=== PATIENT | female | born 1945 | race Caucasian/White ===

== ENCOUNTER → 2018-10-26 | Outpatient (CLI) | payer MEDICARE ==
--- NOTE | 2018-10-26 09:09 | US ---
EXAMINATION TYPE: US duplex aorta DATE OF EXAM: 10/26/2018 COMPARISON: NONE CLINICAL HISTORY: 72-year-old female I71.4 Cardiac murmur, unspecified. TECHNIQUE: Multiple sonographic images of the abdominal aorta are obtained. FINDINGS: EXAM MEASUREMENTS: Abdominal Aorta: Proximal: 2.5 x 2.4 x 2.8 cm Mid: 2.2 x 2.3 x 2.3 cm Distal: 1.8 x 1.8 x 2.0 cm Bifurcation: RT: 1.0 x 1.0 x 1.0 cm LT: 0.9 x 1.1 x 1.1 cm Public Relations notes: Mild atherosclerotic plaque visualized. Ectatic proximal aorta visualized IMPRESSION: Ectatic upper abdominal aorta at 2.8 cm. No AAA.
== END | disposition home or self-care (01) ==
LOC: RADUSWWP 08:08
PROVIDERS: ATTEND Family Medicine
DX: I77.811 Abdominal aortic ectasia (principal)
CPT/HCPCS: 93979

== ENCOUNTER 2020-07-28 08:17 | Day surgery (SDC) | payer MEDICARE ==
[2020-07-27 12:21] VITALS: BMI 40.6
[~2020-07-28 08:17] MED LIST: LACTATED RINGERS 1,000 ML IV SCH
[2020-07-28 08:40] VITALS: RESP 16; TEMP 97.8
[2020-07-28] MEDS ORDERED: LIDOCAINE 1% INJ 10MG/ML (20 ML MDV) ONE (09:08)
[2020-07-28] MEDS ORDERED: PROPOFOL 10 MG/ML 20 ML VIAL IV ONE (09:08)
--- NOTE | 2020-07-28 09:28 | P.PCN ---
Date of Procedure: 07/28/20 Procedure(s) Performed: BRIEF HISTORY: Patient is a 74-year-old pleasant white female scheduled for an elective colonoscopy as a part of Hemoccult-positive stool. PROCEDURE PERFORMED: Colonoscopy. PREOPERATIVE DIAGNOSIS: Hemoccult-positive stool. IV sedation per Anesthesia. PROCEDURE: After informed consent was obtained, the patient, was brought into the endoscopy unit. IV sedation was administered by Anesthesia under continuous monitoring. Digital rectal examination was normal. Initially the Olympus CF-160 flexible video colonoscope was then inserted in the rectum, gradually advanced into the cecum without any difficulty. Careful examination was performed as the scope was gradually being withdrawn. Ileocecal valve and the appendiceal orifice were visualized and appeared normal. Prep was excellent. Mucosa of the cecum, ascending colon, transverse colon, descending colon, sigmoid colon, and rectum appeared normal. Scattered sigmoid diverticulosis. Retroflexion was performed in the rectum and no lesions were seen. The patient tolerated the procedure well. IMPRESSION: Normal-appearing colon from rectum to cecum no evidence of colorectal neoplasia Scattered sigmoid diverticulosis. RECOMMENDATIONS: Findings of this examination were discussed with the patient well his family. She was advised to have a repeat screening colonoscopy in 10 years..
[2020-07-28 09:48] VITALS: BP 156/95; PULSE 60
== END 2020-07-28 10:01 | disposition home or self-care (01) ==
LOC: ORWHC2ENDO 08:17
PROVIDERS: ATTEND Internal Medicine Gastroenterology
DX: R19.5 Other fecal abnormalities (principal); K57.30 Diverticulosis of large intestine without perforation or abscess without bleeding; I10 Essential (primary) hypertension; M19.90 Unspecified osteoarthritis, unspecified site; Z79.899 Other long term (current) drug therapy; Z88.5 Allergy status to narcotic agent
CPT/HCPCS: 45378; J2001; J2704

== ENCOUNTER → 2020-07-31 | Outpatient (CLI) | payer MEDICARE | END | disposition home or self-care (01) | LOC: RADECHMAIN 12:18 | PROVIDERS: ATTEND Family Medicine | DX: R00.2 Palpitations (principal) | CPT/HCPCS: 93270 ==

== ENCOUNTER → 2020-09-11 | Outpatient (CLI) | payer MEDICARE ==
[2020-09-11 11:35] LABS: African American GFR (CKD) >90 (>60 ml/min/1.73 sqM); Blood Urea Nitrogen 15 mg/dL (7-17); Non-African American GFR(CKD) 85 (>60 ml/min/1.73 sqM)
--- NOTE | 2020-09-11 13:48 | CT ---
EXAMINATION TYPE: CT angio chest DATE OF EXAM: 09/11/2020 12:44 PM COMPARISON: None HISTORY: Thoracic aortic aneurysm CT DLP: 14.5 mGycm Automated exposure control for dose reduction was used. CONTRAST: CTA scan of the thorax is performed , patient injected with 100 mL of Isovue 370, pulmonary embolism protocol. . FINDINGS: AORTA: Ascending aorta demonstrates mild aneurysmal dilation measuring a maximal dimension of 4.2 cm. Mild atherosclerotic changes. No evidence of aortic dissection. There is ectasia of the thoracic aor ta. LUNGS: The lungs are grossly clear, there is no concerning parenchymal mass or nodule identified. T here is no pleural effusion or pneumothorax seen. The tracheobronchial tree is patent. MEDIASTINUM: There is satisfactory enhancement of the pulmonary artery and its branches, there is no CT evidence for pulmonary embolism. There are no greater than 1 cm hilar or mediastinal lymph nodes. No pericardial effusion is seen. OTHER: Subcentimeter left thyroid nodule incidentally noted. Hypertrophic and degenerative change of the spine. Vertebral body hemangioma incidentally noted. IMPRESSION: 1. Mild aneurysmal dilation of the ascending aorta measuring 4.2 cm. Very mild atherosclerotic plaque .
== END | disposition home or self-care (01) ==
LOC: RADCTMAIN 10:59
PROVIDERS: ATTEND Internal Medicine Interventional Cardiology
DX: I71.2 Thoracic aortic aneurysm, without rupture (principal); I25.83 Coronary atherosclerosis due to lipid rich plaque
CPT/HCPCS: 82565; 84520; 71275; 36415; Q9967

== ENCOUNTER → 2020-10-03 | Outpatient (CLI) | payer MEDICARE ==
[2020-10-03 13:37] LABS: African American GFR (CKD) >90 (>60 ml/min/1.73 sqM); Anion Gap 3 mmol/L; Blood Urea Nitrogen 17 mg/dL (7-17); Carbon Dioxide 33 mmol/L (22-30); Chloride 100 mmol/L (98-107); Glucose 117 mg/dL (74-99); Non-African American GFR(CKD) >90 (>60 ml/min/1.73 sqM); Potassium 4.5 mmol/L (3.5-5.1); Sodium 136 mmol/L (137-145)
== END | disposition home or self-care (01) ==
LOC: LABWHC1 12:01
PROVIDERS: ATTEND Nurse Practitioner
DX: E87.1 Hypo-osmolality and hyponatremia (principal)
CPT/HCPCS: 36415; 80048

== ENCOUNTER → 2020-10-11 | Outpatient (CLI) | payer MEDICARE ==
[2020-10-11 16:37] LABS: Appearance,Urine Clear (Clear); Bilirubin,Urine Negative (Negative); Blood,Urine Negative (Negative); Budding Yeast,Urine Rare /hpf; Color,Urine Light Yellow; Glucose,Urine (UA) Negative (Negative); Hyaline Casts,Urine 3 /lpf (0-2); Ketones,Urine Negative (Negative); Leukocyte Esterase,Urine Moderate (Negative); Mucus,Urine Rare /hpf; Nitrite,Urine Negative (Negative); PH, Urine 6.5 (5.0-8.0); Protein,Urine Negative (Negative); RBC,Urine 1 /hpf (0-5); Specific Gravity,Urine 1.015 (1.001-1.035); Squamous Epithelial Cell,Urine <1 /hpf (0-4); Urobilinogen,Urine <2.0 mg/dL (<2.0); WBC,Urine 15 /hpf (0-5)
[2020-10-11 16:53] LABS: Creatinine,Urine Random 61.5 mg/dL; Protein/Creatinine Ratio,Urine 0.163
[2020-10-11 23:55] LABS: Basophils # (A) 0.02 X 10*3/uL (0.00-0.10); Basophils % (A) 0.3 %; Eosinophils # (A) 0.08 X 10*3/uL (0.04-0.35); Eosinophils % (A) 1.2 %; HCT 32.6 % (37.2-46.3); Lymphocytes # (A) 0.68 X 10*3/uL (0.90-5.00); Lymphocytes % (A) 10.5 %; MCH 28.6 pg (27.0-32.0); MCHC 30.7 g/dL (32.0-37.0); MCV 93.1 fL (80.0-97.0); Mean Platelet Volume 10.2 fL (9.5-12.2); Monocytes # (A) 0.42 X 10*3/uL (0.20-1.00); Monocytes % (A) 6.5 %; Neutrophils # (A) 5.23 X 10*3/uL (1.80-7.70); Neutrophils % (A) 81.2 %; Platelet Count 269 X 10*3/uL (140-440); RDW 15.8 % (11.5-14.5); WBC 6.45 X 10*3/uL (4.50-10.00)
[2020-10-12 20:33] LABS: African American GFR (CKD) 100.3 (60.0-200.0); Anion Gap 9.9 mmol/L (4.00-12.00); Calcium 9.7 mg/dL (8.7-10.3); Carbon Dioxide 26.1 mmol/L (21.6-31.8); Magnesium 1.8 mg/dL (1.5-2.4); Non-African American GFR(CKD) 86.6 (60.0-200.0); Phosphorus 3.3 mg/dL (2.4-5.1); Potassium 4.3 mmol/L (3.5-5.5); Uric Acid 2.8 mg/dL (2.9-7.7)
== END | disposition home or self-care (01) ==
LOC: LABWHC1 15:39
PROVIDERS: ATTEND Internal Medicine Nephrology
DX: N17.9 Acute kidney failure, unspecified (principal)
CPT/HCPCS: 36415; 80051; 81001; 82310; 82565; 82570; 83735; 84100; 84156; 84520; 84550; 85025

== ENCOUNTER → 2020-12-14 | Outpatient (CLI) | payer MEDICARE ==
[2020-12-14 15:04] LABS: Appearance,Urine Clear (Clear); Bilirubin,Urine Negative (Negative); Blood,Urine Negative (Negative); Color,Urine Yellow; Glucose,Urine (UA) Negative (Negative); Ketones,Urine Negative (Negative); Leukocyte Esterase,Urine Negative (Negative); Nitrite,Urine Negative (Negative); PH, Urine 6.5 (5.0-8.0); Protein,Urine Negative (Negative); Specific Gravity,Urine 1.012 (1.001-1.035); Urobilinogen,Urine <2.0 mg/dL (<2.0)
[2020-12-15 01:13] LABS: HCT 41.5 % (37.2-46.3); HGB 12.7 g/dL (12.0-15.0); MCH 27.5 pg (27.0-32.0); MCHC 30.6 g/dL (32.0-37.0); Mean Platelet Volume 10.3 fL (9.5-12.2); Platelet Count 236 X 10*3/uL (140-440); RBC 4.61 X 10*6/uL (4.10-5.20); RDW 13.2 % (11.5-14.5); WBC 5.24 X 10*3/uL (4.50-10.00)
[2020-12-15 06:23] LABS: Calcium 9.6 mg/dL (8.7-10.3); Phosphorus 4.5 mg/dL (2.4-5.1); Uric Acid 4.3 mg/dL (2.9-7.7)
== END | disposition home or self-care (01) ==
LOC: LABWHC1 14:13
PROVIDERS: ATTEND Internal Medicine Nephrology
DX: I10 Essential (primary) hypertension (principal)
CPT/HCPCS: 36415; 81003; 82310; 83735; 83935; 84100; 84133; 84300; 84550; 85027

== ENCOUNTER → 2020-12-20 | Outpatient (CLI) | payer MEDICARE ==
[2020-12-21 03:21] LABS: African American GFR (CKD) 73.5 (60.0-200.0); Anion Gap 14.2 mmol/L (4.00-12.00); BUN/Creat Ratio 16.67 Ratio (12.00-20.00); Calcium 9.6 mg/dL (8.7-10.3); Carbon Dioxide 22.8 mmol/L (21.6-31.8); Non-African American GFR(CKD) 63.4 (60.0-200.0); Potassium 5.2 mmol/L (3.5-5.5)
== END | disposition home or self-care (01) ==
LOC: LABWHC1 13:43
PROVIDERS: ATTEND Internal Medicine Nephrology
DX: N17.9 Acute kidney failure, unspecified (principal)
CPT/HCPCS: 36415; 80048

== ENCOUNTER → 2021-01-01 | Outpatient (CLI) | payer MEDICARE ==
[2021-01-01 23:53] LABS: Chol/HDL Ratio 4.6; LDL Cholesterol,Calculated 186.6 mg/dL (0.0-131.0); VLDL Calculation 22.4 mg/dL (5.00-40.00)
== END | disposition home or self-care (01) ==
LOC: LABWHC1 11:00
PROVIDERS: ATTEND Nurse Practitioner Adult Health
DX: E78.2 Mixed hyperlipidemia (principal)
CPT/HCPCS: 36415; 80061; 84450; 84460

== ENCOUNTER → 2021-01-19 | Outpatient (CLI) | payer MEDICARE ==
--- NOTE | 2021-01-19 15:01 | XR ---
EXAMINATION TYPE: XR chest 2V DATE OF EXAM: 01/19/2021 COMPARISON: NONE HISTORY: Shortness of breath TECHNIQUE: Frontal and lateral views of the chest are obtained. FINDINGS: Scattered senescent parenchymal changes noted. Hyperinflation compatible with COPD. No evidence for infiltrate. No evidence for atelectasis. Heart size is stable. Mediastinal structures are stable and grossly unremarkable. No evidence for hilar prominence. Degenerative changes dorsal spine. IMPRESSION: 1. No evidence for acute pulmonary disease.
== END | disposition home or self-care (01) ==
LOC: RADXRMAIN 11:39
PROVIDERS: ATTEND Nurse Practitioner
DX: R06.02 Shortness of breath (principal)
CPT/HCPCS: 71046

== ENCOUNTER → 2021-09-17 | Outpatient (CLI) | payer MEDICARE ==
[2021-09-17 13:54] LABS: African American GFR (CKD) >90 (>60 ml/min/1.73 sqM); Blood Urea Nitrogen 14 mg/dL (7-17); Non-African American GFR(CKD) 79 (>60 ml/min/1.73 sqM)
--- NOTE | 2021-09-17 15:34 | CT ---
EXAMINATION TYPE: CT angio chest DATE OF EXAM: 09/17/2021 COMPARISON: CT dated 09/11/2020 HISTORY: Follow up for thoracic aortic aneurysm. CT DLP: 1124 mGy.cm. Automated Exposure Control for Dose Reduction was Utilized. TECHNIQUE AND CONTRAST: CTA scan of the thorax is performed without and with IV Contrast, patient injected with 100ml mL of I sovue 370, thoracic aortogram protocol. MIP and 3-D Images are created on an independent workstatio n and reviewed. FINDINGS: The ascending aorta measures up to 4.4 cm, not significantly changed compared to the previous CT scan . Bovine aortic arch. Scattered arterial atherosclerotic calcifications. Tortuous descending thoracic aorta. Grossly unremarkable remainder of the thoracic and upper abdominal aorta. No major or central pulmonary embolism. No gross cardiomegaly. Small pericardial fluid. Unremarkable lungs. Patent trachea and main bronchi. No pleural effusion. Small left posterior fat-co ntaining diaphragmatic hernia. No pathologically enlarged lymph nodes in the chest. Degenerative rick ges of the glenohumeral articulations. Degenerative changes of T1-2 level and upper lumbar spine. IMPRESSION: Small ascending aortic aneurysm measuring up to 4.4 cm, grossly stable compared to the previous CT sc an. Other incidental findings as described above.
== END | disposition home or self-care (01) ==
LOC: RADCTMAIN 13:17
PROVIDERS: ATTEND Internal Medicine Interventional Cardiology
DX: I71.2 Thoracic aortic aneurysm, without rupture (principal)
CPT/HCPCS: 82565; 84520; 71275; 36415; Q9967

== ENCOUNTER → 2022-01-17 | Outpatient (CLI) | payer MEDICARE ==
[2022-01-17 10:49] LABS: ALT 16 U/L (8-44); AST 24 U/L (13-35); Chol/HDL Ratio 4.03 Ratio; LDL Cholesterol,Calculated 168.7 mg/dL (0.0-131.0)
== END | disposition home or self-care (01) ==
LOC: LABWHC1 07:46
PROVIDERS: ATTEND Internal Medicine Interventional Cardiology
DX: E78.2 Mixed hyperlipidemia (principal)
CPT/HCPCS: 36415; 80061; 84450; 84460

== ENCOUNTER → 2022-03-11 | Outpatient (CLI) | payer MEDICARE ==
--- NOTE | 2022-03-11 19:58 | BD ---
EXAMINATION TYPE: Axial Bone Density DATE OF EXAM: 03/11/2022 COMPARISON: NONE CLINICAL HISTORY: 76 years year old Female. ICD-10 CODE: Z78.0 Menopausal state Height: 65 Weight: 251.8 FRAX RISK QUESTIONS: Alcohol (3 or more units per day): NO Family History (Parent hip fracture): NO Glucocorticoids (More than 3mos): NO History of Fracture in Adulthood: NO Secondary Osteoporosis: 1. Type 1 Diabetes: NO 2. Hyperthyroidism: NO 3. Menopause before 45: NO 4. Malnutrition: NO 5. Chronic liver disease: NO Rheumatoid Arthritis: NO Current Tobacco Use: NO RISK FACTORS HISTORY OF: Hip Fracture (Right/Left): NO Spine Fracture: NO History of Wrist Fracture: NO Surgery to Spine/Hip(right/left)/Wrist (right/left): NO Family History of Osteoporosis: NO Active: YES Diet low in dairy products/other sources of calcium: YES Postmenopausal woman: YES Take estrogen and/or progesterone medications: NO Lost more than 2 inches in height since high school: NO Frequent falls: NO Poor Health: NO Hyperparathyroidism: NO Adrenal Insufficiency: NO MEDICATIONS: Prednisone or other steroids: NO Thyroid Medications:NO Osteoporosis Medications: NO Additional Medications: LOSARTAN, HYDRALAZINE, LASIX, BP MEDS, THYROID SUPPLEMENT, JOINT SUPPLEMENT, VIT D, ZINC, TUMERIC EXAM MEASUREMENTS: Bone mineral densitometry was performed using the [employer] System. Bone mineral density as measured about the Lumbar spine is: ----- L1-L4(G/cm2): 1.519 T Score Values are as follows: ----- L1: 2.9 ----- L2: 3.5 ----- L3: 2.2 ----- L4: 2.4 ----- L1-L4: 2.8 BASELINE STUDY Bone mineral density about the R hip (g/cm2): 1.088 Bone mineral density about the L hip (g/cm2): 1.229 T Score values are as follows: -----R Neck: 0.4 -----L Neck: 1.4 -----R Total: 0.6 -----L Total: 0.9 BASELINE STUDY FRAX%s: The graph provided illustrates a 6.0% chance for a major osteoporotic fx and a 0.3% chance fo r the hips probability for fx in 10 years time. IMPRESSION: Normal (Values between +1 and -1 indicate normal bone mass). Consider repeating this study in 5 year s or sooner if there is some new clinical indication. NOTE: T-SCORE=SD OF THE YOUNG ADULT MEAN.
--- NOTE | 2022-03-12 17:43 | MM ---
Reason for Exam: Screening (asymptomatic). Last mammogram was performed 25 year(s) and 0 month(s) ago. Patient History: Menarche at age 13. First Full-Term at age 24. Postmenopausal. Patient has history of breast feeding. Last menstrual period: Risk Values: Polly 5 year model risk: 1.7%. NCI Lifetime model risk: 4.0%. Prior Study Comparison: No prior studies available for comparison. Tissue Density: There are scattered fibroglandular densities. Findings: Analyzed By CAD. Benign calcifications scattered bilaterally. No suspicious groups of microcalcifications, spiculated or lobular masses, architectural distortion or other secondary signs of malignancy are mammographically apparent. Overall Assessment: Benign, BI-RAD 2 Management: Screening Mammogram of both breasts in 1 year. A negative mammogram report should not preclude additional follow up of suspicious palpable abnormalities. Patient should continue monthly self breast exam. A clinical breast exam by your physician is recommended on an annual basis and results should be correlated with mammographic findings. Electronically signed and approved by: Herberth Wallis D.O. Radiologis
== END | disposition home or self-care (01) ==
LOC: RADMAMWWP 10:13
PROVIDERS: ATTEND Family Medicine
DX: Z12.31 Encounter for screening mammogram for malignant neoplasm of breast (principal); Z78.0 Asymptomatic menopausal state
CPT/HCPCS: 77063; 77067; 77080

== ENCOUNTER 2023-03-31 23:28 | Inpatient (IN) | payer MEDICARE ==
[2023-03-31] MEDS ORDERED: ALTEPLASE 81 MG in EMPTY BAG 1 BAG IV STA (23:36)
[2023-03-31] MEDS ORDERED: ALTEPLASE BOLUS 1 MG/1 ML SYRINGE IV STA (23:36)
--- NOTE | 2023-03-31 23:36 | ED ---
Neuro HPI - General Stated Complaint: Alteplase Time Seen by Provider: 03/31/23 23:30 - History of Present Illness Is the patient presenting with stroke symptoms?: Yes Last Known Well Date: 03/31/23 Last Known Well Time: 22:41 Onset/Timin -: minutes(s) Initial Comments: Margaux is a pleasant 77-year-old female who presents to the ER today via EMS for evaluation of possible stroke. reports that he was sitting in the living room watching football and it had only been moment since he had talked to his when she walked back in and told him "not good" he noted that her right arm seemed to be paralyzed and she was saying words but not necessarily making sense. He was concerned that she may be having a stroke so he called 911. Upon arrival patient is awake but has expressive aphasia. She can speak clearly however there is words salad and not appropriate responses to all questions. - Related Data Home Medications: Home Medications Medication Instructions Recorded Confirmed hydroCHLOROthiazide 25 mg PO DAILY 02/27/14 07/27/20 Cholecalciferol (Vitamin D3) 125 mcg PO DAILY 07/27/20 07/27/20 [Vitamin D3 (5000 Iu)] Colon Fiber Blend 1 applicate PO DAILY 07/27/20 07/27/20 Garlic 3 each PO DAILY 07/27/20 07/27/20 Ibuprofen [Advil] 400 mg PO BID PRN 07/27/20 07/27/20 Losartan Potassium 100 mg PO DAILY 07/27/20 07/27/20 Multivitamins, Thera [Multivitamin 1 tab PO DAILY 07/27/20 07/27/20 (formulary)] S[place]-3 Fatty Acids [S[place]rav[place]-3] 1,000 mg PO DAILY 07/27/20 07/27/20 dilTIAZem HCL [Cartia Xt] 120 mg PO DAILY 07/27/20 07/27/20 Allergies/Adverse Reactions: Allergies Allergy/AdvReac Type Severity Reaction Status Date / Time codeine Allergy Mild Itching Verified 07/27/20 12:07 sunflower seed Allergy Itching Verified 07/27/20 12:07 Review of Systems ROS Statement: Those systems with pertinent positive or pertinent negative responses have been documented in the HPI. ROS Other: All systems not noted in ROS Statement are negative. Stroke MDM - Lab Data Result diagrams: 04/01/23 05:47 11/21/23 05:47 Lab Results 03/31/23 03/31/23 03/31/23 Range/Units 23:37 23:37 23:37 WBC 4.0 (3.8-10.6) k/uL RBC 4.72 (3.80-5.40) m/uL Hgb 13.9 (11.4-16.0) gm/dL Hct 41.7 (34.0-46.0) % MCV 88.4 (80.0-100.0) fL MCH 29.4 (25.0-35.0) pg MCHC 33.3 (31.0-37.0) g/dL RDW 14.2 (11.5-15.5) % Plt Count 190 (150-450) k/uL MPV 7.5 Neutrophils % 66 % Lymphocytes % 23 % Monocytes % 7 % Eosinophils % 2 % Basophils % 1 % Neutrophils # 2.7 (1.3-7.7) k/uL Lymphocytes # 0.9 L (1.0-4.8) k/uL Monocytes # 0.3 (0-1.0) k/uL Eosinophils # 0.1 (0-0.7) k/uL Basophils # 0.0 (0-0.2) k/uL PT 10.5 (10.0-12.5) sec INR 0.9 (<1.2) APTT 25.4 (22.0-30.0) sec Sodium 135 L (137-145) mmol/L Potassium 3.9 (3.5-5.1) mmol/L Chloride 103 (98-107) mmol/L Carbon Dioxide 23 (22-30) mmol/L Anion Gap 9 mmol/L BUN 24 H (7-17) mg/dL Creatinine 0.78 (0.52-1.04) mg/dL Est GFR (CKD-EPI)AfAm 86 (>60 ml/min/1.73 sqM) Est GFR (CKD-EPI)NonAf 75 (>60 ml/min/1.73 sqM) Glucose 104 H (74-99) mg/dL POC Glucose (mg/dL) (70-110) mg/dL POC Glu Coordinator Of Library Services ID Calcium 9.1 (8.4-10.2) mg/dL Total Bilirubin 0.6 (0.2-1.3) mg/dL AST 34 (14-36) U/L ALT 28 (4-34) U/L Alkaline Phosphatase 103 (38-126) U/L Creatine Kinase 118 (30-135) U/L Troponin I (0.000-0.034) ng/mL Total Protein 6.7 (6.3-8.2) g/dL Albumin 3.9 (3.5-5.0) g/dL 03/31/23 03/31/23 Range/Units 23:37 23:44 WBC (3.8-10.6) k/uL RBC (3.80-5.40) m/uL Hgb (11.4-16.0) gm/dL Hct (34.0-46.0) % MCV (80.0-100.0) fL MCH (25.0-35.0) pg MCHC (31.0-37.0) g/dL RDW (11.5-15.5) % Plt Count (150-450) k/uL MPV Neutrophils % % Lymphocytes % % Monocytes % % Eosinophils % % Basophils % % Neutrophils # (1.3-7.7) k/uL Lymphocytes # (1.0-4.8) k/uL Monocytes # (0-1.0) k/uL Eosinophils # (0-0.7) k/uL Basophils # (0-0.2) k/uL PT (10.0-12.5) sec INR (<1.2) APTT (22.0-30.0) sec Sodium (137-145) mmol/L Potassium (3.5-5.1) mmol/L Chloride (98-107) mmol/L Carbon Dioxide (22-30) mmol/L Anion Gap mmol/L BUN (7-17) mg/dL Creatinine (0.52-1.04) mg/dL Est GFR (CKD-EPI)AfAm (>60 ml/min/1.73 sqM) Est GFR (CKD-EPI)NonAf (>60 ml/min/1.73 sqM) Glucose (74-99) mg/dL POC Glucose (mg/dL) 102 (70-110) mg/dL POC Glu Coordinator Of Library Services ID Pacheco, Francoise Calcium (8.4-10.2) mg/dL Total Bilirubin (0.2-1.3) mg/dL AST (14-36) U/L ALT (4-34) U/L Alkaline Phosphatase (38-126) U/L Creatine Kinase (30-135) U/L Troponin I <0.012 (0.000-0.034) ng/mL Total Protein (6.3-8.2) g/dL Albumin (3.5-5.0) g/dL - NIH Stroke Scale 1a. Level of Consciousness: (0) alert 1b. LOC Questions: (1) answers 1 question correctly 1c. LOC Commands: (0) performs tasks correctly 2. Best Gaze: (0) normal 3. Visual: (0) no visual loss 4. Facial Palsy: (0) normal symmetrical movement 5a. Motor Arm Left: (0) no drift 5b. Motor Arm Right: (3) no gravity effort 6a. Motor Leg Left: (0) no drift 6b. Motor Leg Right: (0) no drift 7. Limb Ataxia: (0) absent 8. Sensory: (0) normal 9. Best Language: (1) mild/moderate aphasia 10. Dysarthria: (0) normal 11. Extinction/Inattention: (0) no abnormality - Thrombolytic Inclusion/Exclusion Thrombolytic Inclusion Criteria: Symptom Onset < 4.5 h - Core Measures Door to Thrombolytics, if given: [address] Read: 22 min Measure Exclusions: not indicated - Medical Decision Making Was pt. sent in by a medical professional or institution (, PA, ULTRASONIC HAND SOLDERER, urgent care, hospital, or [place] health care facility...) When possible be specific @ -No Did you speak to anyone other than the patient for history (EMS, parent, family, police, friend...)? What history was obtained from this source @ -EMS, spouse Did you review nursing and triage notes (agree or disagree)? Why? @ -I reviewed and agree with nursing and triage notes Were old charts reviewed (outside hosp., previous admission, EMS record, old EKG, old radiological studies, urgent care reports/EKG's, [place] health care facility records)? Report findings @ -No old charts were reviewed Differential Diagnosis (chest pain, altered mental status, abdominal pain women, abdominal pain men, vaginal bleeding, weakness, fever, dyspnea, syncope, headach e, dizziness, GI bleed, back pain, seizure, CVA, palpatations, mental health, musculoskeletal)? @ -Differential Altered Mental Status: Hypoglycemia, DKA, hypercapnia, ETOH, overdose, CO poisoning, trauma, myxedema coma, HTN encephalopathy, infection, encephalitis, psychosis, intercranial hemorrhage, hepatic encephalopathy, meningitis, CVA, this is not meant to be an all-inclusive list EKG interpreted by me (3pts min.). @ -As above X-rays interpreted by me (1pt min.). @ -Chest x-ray with no pneumothorax, pulmonary congestion and cardiomegaly noted CT interpreted by me (1pt min.). @ -CT of the brain with no obvious mass or bleed CTA of the head and neck with no obvious bleed U/S interpreted by me (1pt. min.). @ -None done What testing was considered but not performed or refused? (CT, X-rays, U/S, lab s)? Why? @ -MRI can be obtained upon admission What meds were considered but not given or refused? Why? @ -None Did you discuss the management of the patient with other professionals (professionals i.e. , PA, ULTRASONIC HAND SOLDERER, lab, RT, psych nurse, social media analyst, bodily injury adjuster, teacher, railway patrol officer, protective services case worker)? Give summary @ -Discussed with neuro interventional is Dr. Lees Was smoking cessation discussed for >3mins.? @ -No Was critical care preformed (if so, how long)? @ -Yes, 35 minutes Were there social determinants of health that impacted care today? How? (Homelessness, low income, unemployed, alcoholism, drug addiction, transportation, low edu. Level, literacy, decrease access to med. care, long term, rehab)? @ -No Was there de-escalation of care discussed even if they declined (Discuss DNR or withdrawal of care, Hospice)? DNR status @ -No What co-morbidities impacted this encounter? (DM, HTN, Smoking, COPD, CAD, Cancer, CVA, ARF, Chemo, Hep., AIDS, mental health diagnosis, sleep apnea, morbid obesity)? @ -Hypertension Was patient admitted / discharged? Hospital course, mention meds given and route, prescriptions, significant lab abnormalities, going to OR and other pertinent info. @ -The patient was seen immediately upon arrival to the emergency department, patient was placed on a bed for accurate weight and then transferred immediately to CT scanner where computed tomography scan was performed and evaluated in real-time by myself I saw no obvious mass or bleed. I then returned to the patient's room to discuss care with her as the patient was experiencing expressive aphasia therefore could not consent for herself. is familiar with the risks and benefits of TPA having received in the past himself, patient stated immediately upon starting conversation that he wanted the medication given as soon as possible. We did discuss risk of leaving including intracranial hemorrhage, understands these risks and would like to move forward with administration of the medication. The head CT was formally read by the radiologist and TPA was administered 30 minutes after arrival. Patient care was discussed with Srinivas REYES for ICU who accepts patient to the ICU Patient care was discussed with Tanvi Redd nurse practitioner for [facility] who accepts the admission Patient was reevaluated approximately 30 minutes after TPA administration, she had her family at bedside. Patient's expressive aphasia was improving significantly she was able to speak clearly name the people in the room and answer most of my questions though occasionally stumble on certain words. Patient had some effort against gravity in her right upper extremity. She was awake alert oriented with improving neurologic condition when she was transferred to the ICU from the emergency department Undiagnosed new problem with uncertain prognosis? @ -Yes Drug Therapy requiring intensive monitoring for toxicity (Heparin, Nitro, Insulin, Cardizem)? @ -Yes - TPA Were any procedures done? @ -No Diagnosis/symptom? @ -Acute stroke Acute, or Chronic, or Acute on Chronic? @ -Acute Uncomplicated (without systemic symptoms) or Complicated (systemic symptoms)? @ -Complicated Side effects of treatment? @ -No Exacerbation, Progression, or Severe Exacerbation? @ -No Poses a threat to life or bodily function? How? (Chest pain, USA, VT, pneumonia, PE, COPD, DKA, ARF, appy, cholecystitis, CVA, Diverticulitis, Homicidal, Suicidal, threat to staff... and all critical care pts) @ -Yes - can convert to intracranial hemorrhage - Radiology Data Radiology results: report reviewed, image reviewed - EKG Data -: EKG Interpreted by Me EKG shows normal: sinus rhythm, intervals Rate: normal EKG was obtained as part stroke workup, EKG obtained at 2348 rate is 76 rhythm sinus with intraventricular conduction delay, AK 181 QRS 114 QTC [address] elevations or depressions or evidence of ischemia or infarction. 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, "bad knees' History of Any Multi-Drug Resistant Organisms: None Reported Past Surgical History: Appendectomy, Hernia Repair, Orthopedic Surgery, Tonsillectomy Additional Past Surgical History / Comment(s): ulbilical hernia repair, cedric bunionectomy Past Anesthesia/Blood Transfusion Reactions: No Reported Reaction Smoking Status: Never smoker - Past Family History Daughter(s) Family Medical History: Cancer Additional Family Medical History / Comment(s): breast Sister(s) Family Medical History: Cancer Additional Family Medical History / Comment(s): uterine Brother(s) Family Medical History: Cancer, Pulmonary Embolus Additional Family Medical History / Comment(s): melanoma Course Vital Signs 03/31/23 04/01/23 04/01/23 23:30 00:00 00:15 Temperature 98.5 F Pulse Rate 76 Pulse Rate [ 81 73 Vault Worker ] Respiratory 16 16 16 Rate Blood Pressure 177/101 Blood Pressure 175/103 175/71 [Right Arm] O2 Sat by Pulse 97 95 95 Oximetry 04/01/23 04/01/23 04/01/23 00:30 00:45 01:00 Temperature 97.8 F 98.6 F Pulse Rate Pulse Rate [ 71 73 69 Vault Worker ] Respiratory 14 16 14 Rate Blood Pressure Blood Pressure 131/101 149/95 125/107 [Right Arm] O2 Sat by Pulse 94 L 94 L 95 Oximetry 04/01/23 01:21 Temperature Pulse Rate Pulse Rate [ 69 Vault Worker ] Respiratory 16 Rate Blood Pressure Blood Pressure 127/84 [Right Arm] O2 Sat by Pulse 95 Oximetry Critical Care Time Critical Care Time: Yes Total Critical Care Time: 60 Critical Care Time: Critical Care Time Critical care time was exclusive of separately billable procedures and treating other patients and teaching time. Critical care was necessary to treat or prevent imminent or life-threatening deterioration. Given the critical condition in which the patient arrived, the patient was immediately assessed by myself and the nurse, and cardiac monitoring initiated due to the potential for rapid decompensation of the patient's clinical condition. During the course of the patients stay, I spent a considerable amount of time at the bedside performing serial re-evaluations of the patient's hemodynamic and clinical status because of the recognized potential threat to life or limb in this condition. I then had a chance to review not only all of the available current laboratory and radiographic studies obtained today, but I also reviewed old records available to me at the time. Additionally, any ancillary information available including chair finisher records were reviewed. Sequential vital signs were obtained. Disposition Clinical Impression: Cerebrovascular accident (CVA) Disposition: ADMITTED IP TO THIS HOSP Condition: Serious Is patient prescribed a controlled substance at d/c from ED?: No
[2023-03-31 23:46] LABS: Glucose,Whole Blood 102 mg/dL (70-110)
--- NOTE | 2023-03-31 23:52 | CT ---
EXAM: CT Head Without Intravenous Contrast CLINICAL HISTORY: ITS.REASON CT Reason: Neuro deficit, acute, stroke suspected TECHNIQUE: Axial computed tomography images of the head/brain without intravenous contrast. CTDI is 48.8 mGy and DLP is 1160.9 mGy-cm. This CT exam was performed using one or more of the following dose reduction techniques: automated exposure control, adjustment of the mA and/or kV according to patient size, and/or use of iterative reconstruction technique. COMPARISON: No relevant prior studies available. FINDINGS: Brain: Moderate low-attenuation foci in the cerebral white matter. No hemorrhage. Ventricles: No acute findings. No ventriculomegaly. Bones/joints: Small osteoma of outer table left frontal calvarium. Hyperostosis frontalis. No acute fracture. Soft tissues: Unremarkable. Sinuses: Unremarkable as visualized. No acute sinusitis. Mastoid air cells: Unremarkable as visualized. No mastoid effusion. Sella: Empty sella. IMPRESSION: Moderate low-attenuation foci in the cerebral white matter. Findings are nonspecific but commonly chronic small vessel ischemic disease.
[2023-04-01 00:04] LABS: Basophils % (A) 1 %; Eosinophils # (A) 0.1 k/uL (0-0.7); Eosinophils % (A) 2 %; HCT 41.7 % (34.0-46.0); HGB 13.9 gm/dL (11.4-16.0); Lymphocytes # (A) 0.9 k/uL (1.0-4.8); Lymphocytes % (A) 23 %; MCH 29.4 pg (25.0-35.0); MCHC 33.3 g/dL (31.0-37.0); MCV 88.4 fL (80.0-100.0); Mean Platelet Volume 7.5; Monocytes # (A) 0.3 k/uL (0-1.0); Monocytes % (A) 7 %; Neutrophils # (A) 2.7 k/uL (1.3-7.7); Neutrophils % (A) 66 %; Platelet Count 190 k/uL (150-450); RBC 4.72 m/uL (3.80-5.40); RDW 14.2 % (11.5-15.5)
[2023-04-01 00:15] LABS: ALT 28 U/L (4-34); AST 34 U/L (14-36); African American GFR (CKD) 86 (>60 ml/min/1.73 sqM); Albumin 3.9 g/dL (3.5-5.0); Alkaline Phosphatase 103 U/L (38-126); Anion Gap 9 mmol/L; Blood Urea Nitrogen 24 mg/dL (7-17); Calcium 9.1 mg/dL (8.4-10.2); Carbon Dioxide 23 mmol/L (22-30); Chloride 103 mmol/L (98-107); Creatine Kinase 118 U/L (30-135); Glucose 104 mg/dL (74-99); Non-African American GFR(CKD) 75 (>60 ml/min/1.73 sqM); Potassium 3.9 mmol/L (3.5-5.1); Sodium 135 mmol/L (137-145); Total Bilirubin 0.6 mg/dL (0.2-1.3); Total Protein 6.7 g/dL (6.3-8.2)
[2023-04-01 00:23] LABS: INR 0.9 (<1.2); Partial Thromboplastin Time 25.4 sec (22.0-30.0); Prothrombin Time 10.5 sec (10.0-12.5)
--- NOTE | 2023-04-01 00:27 | CT ---
EXAM: CT Angiography Head With Intravenous Contrast CLINICAL HISTORY: ITS.REASON CT Reason: Neuro deficit, acute, stroke suspected TECHNIQUE: Axial computed tomographic angiography images of the head with intravenous contrast. CTDI is 23.65 mGy and DLP is 356.55 mGy-cm. This CT exam was performed using one or more of the following dose reduction techniques: automated exposure control, adjustment of the mA and/or kV according to patient size, and/or use of iterative reconstruction technique. MIP reconstructed images were created and reviewed. COMPARISON: No relevant prior studies available. FINDINGS: Right internal carotid artery: Mild calcified plaque carotid siphons. Intracranial segment is patent with no significant stenosis. No aneurysm. Right anterior cerebral artery: No occlusion or significant stenosis. No aneurysm. Right middle cerebral artery: No occlusion or significant stenosis. No aneurysm. Right posterior cerebral artery: No occlusion or significant stenosis. No aneurysm. Right vertebral artery: Unremarkable as visualized. Left internal carotid artery: See above. Left anterior cerebral artery: No occlusion or significant stenosis. No aneurysm. Left middle cerebral artery: Calcified plaque causing some mild short segment stenosis in the left M1 segment. Left posterior cerebral artery: origin of the left posterior cerebral artery. 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 Basilar artery: No occlusion or significant stenosis. No aneurysm. 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 EXAM: CT Angiography Neck With Intravenous Contrast CLINICAL HISTORY: ITS.REASON CT Reason: Neuro deficit, acute, stroke suspected TECHNIQUE: Routine carotid CT angiography protocol was performed with intravenous contrast. NASCET criteria using the distal ICAs for comparison were used for evaluation of stenoses. CTDI is 23.65 mGy and DLP is 356.55 mGy-cm. This CT exam was performed using one or more of the following dose reduction techniques: automated exposure control, adjustment of the mA and/or kV according to patient size, and/or use of iterative reconstruction technique. MIP reconstructed images were created and reviewed. COMPARISON: None. FINDINGS: VASCULATURE: Right common carotid artery: No significant stenosis. No dissection or occlusion. Right internal carotid artery: Mild calcified and noncalcified plaque right carotid bifurcation proximal internal carotid artery. Right external carotid artery: No occlusion. Right vertebral artery: Dominant right vertebral artery. Left common carotid artery: No significant stenosis. No dissection or occlusion. Left internal carotid artery: Extracranial segment is patent with no significant stenosis. No dissection or occlusion. Left external carotid artery: No occlusion. Left vertebral artery: No significant stenosis. No dissection or occlusion. Aorta: Bovine aortic arch. NECK: Bones/joints: No acute findings. Soft tissues: Unremarkable. Thyroid: Thyroid nodules. Lung apices: No acute disease. CAROTID STENOSIS REFERENCE USING NASCET CRITERIA: % ICA stenosis = (1 - narrowest ICA diameter/diameter of distal cervical ICA) x 100. Mild - <50% stenosis. Moderate - 50-69% stenosis. Severe - 70-94% stenosis. Near occlusion - 95-99% stenosis. Occluded - 100% stenosis. IMPRESSION: No acute findings in the arteries of the neck.
[2023-04-01] MEDS ORDERED: SODIUM CHLORIDE 0.9% 50 ML MINI-BAG IV ONE ×2 (00:38→01:12)
[2023-04-01 01:38] LABS: Glucose,Whole Blood 104 mg/dL (70-110)
[2023-04-01] MEDS: ATORVASTATIN 80 MG TAB PO SCH ×2 (02:48→20:57)
--- NOTE | 2023-04-01 02:52 | P.CNPUL ---
History of Present Illness Consult date: 04/01/23 Requesting physician: Tanvi Max Reason for consult: other (ICU management; suspected acute stroke) Chief complaint: expressive dysphasia and right arm weakness History of present illness: I am seeing this patient in consultation today 04/01/2023 in the intensive care unit after the patient was admitted for suspected acute ischemic stroke post- TPA. Patient is an 77-year-old white female past medical history significant hypertension, right rotator cuff tear,and appendiceal cancer. Around 0 last night, the patient's states that his came to the bedroom, and "was not feeling right". He says that she had trouble speaking and her right arm was flexed. He took her to the kitchen, and immediately called 911. Code stroke was activated in route. Last known well, per , is 2029. on arrival, NIH was scored at 10. Brain CT showed no hemorrhage or mass effect. Brain CTA showed no acute occlusion or dissection within the arteries of the neck. Patient was given TPA at 2336. Patient is currently lying in bed, on room air, in no acute distress. She continues to have significant expressive dysphasia. Right arm is flexed, but has good strength. Blood pressure is slightly hypertensive. Heart rhythm and bedside monitor appears normal sinus. Most recent CBC shows a WBC count of 4, hemoglobin 13.9, hematocrit 41.7, platelets 190. coagulation profile WDL. BMP has sodium of 135, potassium 3.9, chloride 103, serum bicarbonate 23, BUN 24, creatinine 0.78, glucose 104. LFTs elevated. Troponin less than 0.012. Patient will be monitored in the intensive care unit. Review of Systems Constitutional: Denies fever Eyes: denies decreased vision, denies diplopia, denies pain, denies loss of peripheral vision Ears, nose, mouth and throat: Denies headache Cardiovascular: Denies chest pain, Denies irregular heart beat, Denies lightheadedness, Denies palpitations, Denies syncope Respiratory: Denies cough, Denies dyspnea Gastrointestinal: Denies diarrhea, Denies nausea, Denies vomiting Genitourinary: Denies dysuria, Denies flank pain, Denies urgency Musculoskeletal: Denies arm numbness/tingling, Denies leg numbness/tingling, Denies shooting arm pain, Denies shooting leg pain Neurological: Reports change in speech, Denies convulsions, Denies double vision, Denies head injury, Denies headaches, Denies numbness, Denies visual changes 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, "bad knees' History of Any Multi-Drug Resistant Organisms: None Reported Past Surgical History: Appendectomy, Hernia Repair, Orthopedic Surgery, Tonsillectomy Additional Past Surgical History / Comment(s): ulbilical hernia repair, cedric bunionectomy Past Anesthesia/Blood Transfusion Reactions: No Reported Reaction Smoking Status: Never smoker - Past Family History Daughter(s) Family Medical History: Cancer Additional Family Medical History / Comment(s): breast Sister(s) Family Medical History: Cancer Additional Family Medical History / Comment(s): uterine Brother(s) Family Medical History: Cancer, Pulmonary Embolus Additional Family Medical History / Comment(s): melanoma Medications and Allergies Home Medications Medication Instructions Recorded Confirmed Type hydroCHLOROthiazide 25 mg PO DAILY 02/27/14 07/27/20 History Cholecalciferol (Vitamin D3) 125 mcg PO DAILY 07/27/20 07/27/20 History [Vitamin D3 (5000 Iu)] Colon Fiber Blend 1 applicate PO DAILY 07/27/20 07/27/20 History Garlic 3 each PO DAILY 07/27/20 07/27/20 History Ibuprofen [Advil] 400 mg PO BID PRN 07/27/20 07/27/20 History Losartan Potassium 100 mg PO DAILY 07/27/20 07/27/20 History Multivitamins, Thera [Multivitamin 1 tab PO DAILY 07/27/20 07/27/20 History (formulary)] [place]-3 Fatty Acids [[place]orena-3] 1,000 mg PO DAILY 07/27/20 07/27/20 History dilTIAZem HCL [Cartia Xt] 120 mg PO DAILY 07/27/20 07/27/20 History Allergies Allergy/AdvReac Type Severity Reaction Status Date / Time codeine Allergy Mild Itching Verified 07/27/20 12:07 sunflower seed Allergy Itching Verified 07/27/20 12:07 Physical Exam Vitals: Vital Signs Temp Pulse Pulse Resp BP BP Pulse Ox 04/01/23 01:21 69 16 127/84 95 04/01/23 01:00 98.6 F 69 14 125/107 95 04/01/23 00:45 73 16 149/95 94 L 04/01/23 00:30 97.8 F 71 14 131/101 94 L 04/01/23 00:15 73 16 175/71 95 04/01/23 00:00 81 16 175/103 95 03/31/23 23:30 98.5 F 76 16 177/101 97 Intake and Output 03/31/23 03/31/23 04/01/23 14:59 22:59 06:59 Other: Weight 121.7 kg GENERAL EXAM: Alert,77-year-old obese white female , comfortable in no apparent distress. HEAD: Normocephalic and atraumatic EYES: Normal reaction of pupils, equal size. Conjugate gaze without nyastagmus. NOSE: Clear with pink turbinates. THROAT: No erythema or exudates. NECK: No masses, no JVD. CHEST: No chest wall deformity. LUNGS: Equal air entry with no crackles, wheeze, rhonchi or dullness. on room air. No conversational dyspnea or accessory muscle use.. CVS: S1 and S2 normal with no audible murmur, regular rhythm. No extra heart sounds ABDOMEN: abdomen, no hepatosplenomegaly, active bowel sounds, no guarding or rigidity. SPINE: No scoliosis or deformity SKIN: No rashes CENTRAL NERVOUS SYSTEM: patient is alert and oriented to self and time. She does get her date wrong. She has significant expressive dysphasia. Cranial nerves II through XII intact. Bilateral upper and lower extremity strength is 5/5. There is increased tone in the right upper extremity, and is maintained in a flexed posture when not being used. Possible upper extremity ataxia. No obvious sensory disturbances. No neglect. Gait deferred EXTREMITIES: There is no peripheral edema, clubbing, or cyanosis. Peripheral pulses are intact. Results - Laboratory Findings CBC and BMP: 03/31/23 23:37 03/31/23 23:37 PT/INR, D-dimer PT 10.5 sec (10.0-12.5) 03/31/23 23:37 INR 0.9 (<1.2) 03/31/23 23:37 Abnormal lab findings: Abnormal Labs 03/31/23 03/31/23 23:37 23:37 Lymphocytes # 0.9 L Sodium 135 L BUN 24 H Glucose 104 H Assessment and Plan Assessment: Suspected acute ischemic stroke, status post TPA Expressive dysphasia Benign essential hypertension History of thoracic aortic aneurysm Morbid obesity, with a BMI of 44.6 kg/m plan: Patient's medications, labs, and imaging were reviewed. Patient is status post TPA infusion. She continues to have significant expressive dysphasia, however, family states that it is improved since arrival to the hospital. NIH previously scored at 10 and is currently 5. No clinical deterioration or sign of hemorrhagic conversion. Allow for permissive hypertension, but maintain a BP < 180/105. [address] of the brain without contrast is ordered, and anti-platelet medications to follow. Echocardiogram ordered to rule out cardioembolic origin. Patient was started on high intensity statin, and lipid panel is pending. Neurology is following. Neuro checks per protocol. Assess swallow and consult speech therapy. PT/OT also consulted. SCDS are ordered. Patient will be monitored in the intensive care unit. I have personally seen and examined the patient, performed the documentation and the assessment and plan as written. Number of minutes spent on the visit:20 Time with Patient: Greater than 30
--- NOTE | 2023-04-01 03:35 | XR ---
EXAM: XR Chest, 1 View CLINICAL HISTORY: ITS.REASON XR Reason: altered mental status TECHNIQUE: Frontal view of the chest. COMPARISON: No relevant prior studies available. FINDINGS: Lungs: Unremarkable. No consolidation. Pleural space: Unremarkable. No pneumothorax. Heart: Cardiomegaly. Mediastinum: Unremarkable. Normal mediastinal contour. Bones/joints: Unremarkable. No acute fracture. IMPRESSION: No acute findings in the chest.
[2023-04-01 05:59] LABS: HCT 39.9 % (34.0-46.0); HGB 13.3 gm/dL (11.4-16.0); MCH 29.4 pg (25.0-35.0); MCHC 33.2 g/dL (31.0-37.0); MCV 88.4 fL (80.0-100.0); Mean Platelet Volume 7.5; Platelet Count 193 k/uL (150-450); RBC 4.51 m/uL (3.80-5.40); RDW 14.2 % (11.5-15.5); WBC 5.2 k/uL (3.8-10.6)
[2023-04-01 06:07] LABS: African American GFR (CKD) >90 (>60 ml/min/1.73 sqM); Anion Gap 8 mmol/L; Blood Urea Nitrogen 19 mg/dL (7-17); Calcium 9.1 mg/dL (8.4-10.2); Carbon Dioxide 24 mmol/L (22-30); Chloride 106 mmol/L (98-107); Glucose 114 mg/dL (74-99); Non-African American GFR(CKD) 90 (>60 ml/min/1.73 sqM); Potassium 3.8 mmol/L (3.5-5.1); Sodium 138 mmol/L (137-145)
--- NOTE | 2023-04-01 12:54 | P.HPIM ---
History of Present Illness H&P Date: 04/01/23 History of present illness; patient is 77-year-old lady with past medical histor y significant for hypertension who presented to the ER for evaluation for possible stroke. Patient was accompanied by her was probably mostly history. According to they were watching football game last night at the time patient was in perfectly normal health. went for a few minutes out of the room and when he came back to check on her found her to be confused. She noticed that his right arm was totally paralyzed. Patient was having difficulty in speaking and was having word salad. There was no noticeable facial droop. No noticeable jerking movements of any extremity. immediately became concerned about possibility of a stroke and called 911 and patient was brought to the ER Initial lab work done in the ER showed WBC 4, hemoglobin 13.9, platelet count 190, sodium 135, potassium 3.9, BUN 24, creatinine 0.78, glucose 102, AST 34 ALT 28, troponin 0.012 EKG done in the ER Chest x-ray done in the ER CT brain done showed moderately low attenuation foci in the cerebral white matter, finding nonspecific but commonly chronic small vessel ischemic disease CTA done showed no acute findings in the arteries of the neck ER physician talked with court monitor neurologist and patient was considered a TPA candidate. Patient received TPA was brought to the ICU. REVIEW OF SYSTEMS: CONSTITUTIONAL: No fever, no malaise, no fatigue. HEENT: No recent visual problems or hearing problems. Denied any sore throat. CARDIOVASCULAR: No chest pain, orthopnea, PND, no palpitations, no syncope. PULMONARY: No shortness of breath, no cough, no hemoptysis. GASTROINTESTINAL: No diarrhea, no nausea, no vomiting, no abdominal pain. NEUROLOGICAL: As mentioned in HPI HEMATOLOGICAL: Denies any bleeding or petechiae. GENITOURINARY: Denies any burning micturition, frequency, or urgency. MUSCULOSKELETAL/RHEUMATOLOGICAL: Denies any joint pain, swelling, or any muscle pain. ENDOCRINE: Denies any polyuria or polydipsia. The rest of the 14-point review of systems is negative. PHYSICAL EXAMINATION: GENERAL: The patient is alert and oriented x3, not in any acute distress. Well developed, well nourished. HEENT: Pupils are round and equally reacting to light. EOMI. No scleral icterus. No conjunctival pallor. Normocephalic, atraumatic. No pharyngeal erythema. No thyromegaly. CARDIOVASCULAR: S1 and S2 present. No murmurs, rubs, or gallops. PULMONARY: Chest is clear to auscultation, no wheezing or crackles. ABDOMEN: Soft, nontender, nondistended, normoactive bowel sounds. No palpable organomegaly. MUSCULOSKELETAL: No joint swelling or deformity. EXTREMITIES: No cyanosis, clubbing, or pedal edema. NEUROLOGICAL: Alert, right upper extremity weakness noticeable. Patient having expressive aphasia which is improved from before. Cranial nerves II-12 intact SKIN: No rashes. Assessment and plan Acute stroke Hypertension Monitor vital signs Monitor CBC Monitor CMP Continue telemetry monitoring Continue neuro checks Continue post TPA protocol Repeat CT head in 24 hours. Continue Lipitor Lipid panel ordered Ordered 2-D echo Allow permissive hypertension for the first 48 hours PT OT, speech evaluation Neurology consulted Critical care consulted Labs and medication were reviewed.. Continue same treatment. Continue with symptomatic treatment. Resume home medication. Monitor labs and vitals. DVT and GI prophylaxis. Further recommendations as per clinical course of the patient Dictation was produced using Remark dictation software. please excuse any grammatical, word or spelling errors. 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, "bad knees' History of Any Multi-Drug Resistant Organisms: None Reported Past Surgical History: Appendectomy, Hernia Repair, Orthopedic Surgery, Tonsillectomy Additional Past Surgical History / Comment(s): ulbilical hernia repair, cedric bunionectomy Past Anesthesia/Blood Transfusion Reactions: No Reported Reaction Smoking Status: Never smoker - Past Family History Daughter(s) Family Medical History: Cancer Additional Family Medical History / Comment(s): breast Sister(s) Family Medical History: Cancer Additional Family Medical History / Comment(s): uterine Brother(s) Family Medical History: Cancer, Pulmonary Embolus Additional Family Medical History / Comment(s): melanoma Medications and Allergies Home Medications Medication Instructions Recorded Confirmed Type hydroCHLOROthiazide 25 mg PO DAILY 02/27/14 07/27/20 History Cholecalciferol (Vitamin D3) 125 mcg PO DAILY 07/27/20 07/27/20 History [Vitamin D3 (5000 Iu)] Colon Fiber Blend 1 applicate PO DAILY 07/27/20 07/27/20 History Garlic 3 each PO DAILY 07/27/20 07/27/20 History Ibuprofen [Advil] 400 mg PO BID PRN 07/27/20 07/27/20 History Losartan Potassium 100 mg PO DAILY 07/27/20 07/27/20 History Multivitamins, Thera [Multivitamin 1 tab PO DAILY 07/27/20 07/27/20 History (formulary)] [place]-3 Fatty Acids [[place]-3] 1,000 mg PO DAILY 07/27/20 07/27/20 History dilTIAZem HCL [Cartia Xt] 120 mg PO DAILY 07/27/20 07/27/20 History Allergies Allergy/AdvReac Type Severity Reaction Status Date / Time codeine Allergy Mild Itching Verified 07/27/20 12:07 sunflower seed Allergy Itching Verified 07/27/20 12:07 Physical Exam Vitals: Vital Signs Temp Pulse Pulse Resp BP BP Pulse Ox 04/01/23 07:30 65 11 L 158/95 95 04/01/23 07:15 69 20 154/88 95 04/01/23 07:00 68 16 159/88 96 04/01/23 06:45 71 24 152/73 94 L 04/01/23 06:30 66 10 L 151/85 94 L 04/01/23 06:15 66 17 110/76 94 L 04/01/23 06:00 71 12 147/83 95 04/01/23 05:45 70 10 L 126/55 95 04/01/23 05:30 66 16 143/86 96 04/01/23 05:15 65 16 150/84 97 04/01/23 05:00 73 17 127/91 96 04/01/23 04:45 70 17 143/72 93 L 04/01/23 04:30 61 15 142/78 94 L 04/01/23 04:15 61 16 133/81 94 L 04/01/23 04:00 97.7 F 69 19 126/64 94 L 04/01/23 03:45 66 17 133/66 93 L 04/01/23 03:30 66 16 156/81 93 L 04/01/23 03:15 66 10 L 152/75 94 L 04/01/23 03:00 74 11 L 173/98 94 L 04/01/23 02:40 72 19 143/88 96 04/01/23 02:30 71 17 146/98 95 04/01/23 02:20 67 15 146/98 96 04/01/23 02:10 66 19 137/71 96 04/01/23 02:00 68 17 149/86 97 04/01/23 01:50 97.8 F 71 17 149/86 96 04/01/23 01:21 69 16 127/84 95 04/01/23 01:00 98.6 F 69 14 125/107 95 04/01/23 00:45 73 16 149/95 94 L 04/01/23 00:30 97.8 F 71 14 131/101 94 L 04/01/23 00:15 73 16 175/71 95 04/01/23 00:00 81 16 175/103 95 03/31/23 23:30 98.5 F 76 16 177/101 97 Intake and Output 03/31/23 04/01/23 04/01/23 22:59 06:59 14:59 Intake Total 80 10 Output Total 1200 0 Balance -1120 10 Intake: IV 50 10 0.9 KVO 50 10 Oral 30 Output: Urine 1200 0 Other: Voiding Method External Catheter Weight 118.5 kg Results CBC & Chem 7: 04/01/23 05:47 04/01/23 05:47 Labs: Abnormal Lab Results - Last 24 Hours (Table) 03/31/23 03/31/23 04/01/23 Range/Units 23:37 23:37 05:47 Lymphocytes # 0.9 L (1.0-4.8) k/uL Sodium 135 L (137-145) mmol/L BUN 24 H 19 H (7-17) mg/dL Glucose 104 H 114 H (74-99) mg/dL Thrombosis Risk Factor Assmnt - Choose All That Apply Any of the Below Risk Factors Present?: Yes Each Factor Represents 1 point: Medical pt on bed rest, Obesity (BMI >25) Other Risk Factors: No Other congenital or acquired thrombophilia - If yes, enter type in comment: No Thrombosis Risk Factor Assessment Total Risk Factor Score: 2 Thrombosis Risk Factor Assessment Level: Low Risk
--- NOTE | 2023-04-01 15:20 | P.CNNES ---
History of Present Illness Consult date: 04/01/23 Requesting physician: Tanvi Max Reason for Consult: acute stroke, tpa History of Present Illness: This is a 77-year-old woman with history of hypertension who presented emergency department because of difficulty. Some of the history is obtained from the patient's and daughter were at bedside. Seems that around at 10:30ish p.m. yesterday Nicole 03/31/2023 or shortly after patient stated that she was fee ling off and not herself and that seems that she knew what she wanted to say but the words were coming out wrong. This transpired while she was at home. She denies of any focal weakness, numbness, visual disturbance, difficulty swallowing. She denies any history of stroke. She denies being on daily antiplatelet. Seems the patient presented to our facility on 03/31/2023 around 2328. With the ED team the patient had NIH stroke scale of a 5 and the points were 1 for loss of consciousness for questions, 3 for right arm weakness, 1 for aphasia. She is within the TPA window. The CT of the head was negative for any bleed. CT angiography of the head and neck was reported as severe stenosis to occlusion of the distal left intracranial vertebral artery. No acute finding in the arteries of the neck. Patient received TPA. The ED team spoke with Dr. Lees. Today the patient and her family feels she is better compared to initial presentation but continues to have some speech difficulty but they feel like she is better. Some of the work-up consisted of: CT of the head is reported as moderate low attenuation foci in the cerebral white matter. Findings are nonspecific but commonly chronic small vessel ischemic disease. I personally reviewed the CT and I agreed the patient does have attenuation in the white matter region in the subcortical frontal parietal occipital region that seems suspicious for chronic small vessel disease. There is no prior CT for comparison. There is no bleed. I reviewed the labs that was done since yesterday. Review of Systems The positive and negative as per HPI. 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, "bad knees' History of Any Multi-Drug Resistant Organisms: None Reported Past Surgical History: Appendectomy, Hernia Repair, Orthopedic Surgery, Tonsillectomy Additional Past Surgical History / Comment(s): ulbilical hernia repair, cedric bunionectomy Past Anesthesia/Blood Transfusion Reactions: No Reported Reaction Smoking Status: Never smoker - Past Family History Daughter(s) Family Medical History: Cancer Additional Family Medical History / Comment(s): breast Sister(s) Family Medical History: Cancer Additional Family Medical History / Comment(s): uterine Brother(s) Family Medical History: Cancer, Pulmonary Embolus Additional Family Medical History / Comment(s): melanoma Medications and Allergies Home Medications Medication Instructions Recorded Confirmed Type Losartan Potassium 100 mg PO DAILY 07/27/20 04/01/23 History dilTIAZem HCL [Cartia Xt] 120 mg PO DAILY 07/27/20 04/01/23 History Furosemide [Lasix] 20 mg PO DIRECTED 04/01/23 04/01/23 History Latanoprost [Latanoprost 0.005%] 1 drop BOTH EYES HS 04/01/23 04/01/23 History Allergies Allergy/AdvReac Type Severity Reaction Status Date / Time codeine Allergy Mild Itching Verified 04/01/23 10:18 sunflower seed Allergy Itching Verified 04/01/23 10:18 Physical Examination - Vital Signs Vital Signs: Vital Signs Temp Pulse Pulse Resp BP BP Pulse Ox 04/01/23 15:00 66 15 157/92 93 L 04/01/23 14:00 77 17 146/95 95 04/01/23 13:00 89 26 H 139/92 96 04/01/23 12:00 97.9 F 68 14 95 04/01/23 11:00 71 10 L 125/81 96 04/01/23 10:00 75 19 161/116 93 L 04/01/23 09:00 74 13 159/68 95 04/01/23 08:00 98.1 F 67 11 L 148/92 94 L 04/01/23 07:30 65 11 L 158/95 95 04/01/23 07:15 69 20 154/88 95 04/01/23 07:00 68 16 159/88 96 04/01/23 06:45 71 24 152/73 94 L 04/01/23 06:30 66 10 L 151/85 94 L 04/01/23 06:15 66 17 110/76 94 L 04/01/23 06:00 71 12 147/83 95 04/01/23 05:45 70 10 L 126/55 95 04/01/23 05:30 66 16 143/86 96 04/01/23 05:15 65 16 150/84 97 04/01/23 05:00 73 17 127/91 96 04/01/23 04:45 70 17 143/72 93 L 04/01/23 04:30 61 15 142/78 94 L 04/01/23 04:15 61 16 133/81 94 L 04/01/23 04:00 97.7 F 69 19 126/64 94 L 04/01/23 03:45 66 17 133/66 93 L 04/01/23 03:30 66 16 156/81 93 L 04/01/23 03:15 66 10 L 152/75 94 L 04/01/23 03:00 74 11 L 173/98 94 L 04/01/23 02:40 72 19 143/88 96 04/01/23 02:30 71 17 146/98 95 04/01/23 02:20 67 15 146/98 96 04/01/23 02:10 66 19 137/71 96 04/01/23 02:00 68 17 149/86 97 04/01/23 01:50 97.8 F 71 17 149/86 96 04/01/23 01:21 69 16 127/84 95 04/01/23 01:00 98.6 F 69 14 125/107 95 04/01/23 00:45 73 16 149/95 94 L 04/01/23 00:30 97.8 F 71 14 131/101 94 L 04/01/23 00:15 73 16 175/71 95 04/01/23 00:00 81 16 175/103 95 03/31/23 23:30 98.5 F 76 16 177/101 97 Intake and Output 04/01/23 04/01/23 04/01/23 06:59 14:59 22:59 Intake Total 80 80 10 Output Total 1200 1450 0 Balance -1120 -1370 10 Intake: IV 50 80 10 0.9 KVO 50 80 10 Oral 30 Output: Urine 1200 1450 0 Other: Voiding Method External Catheter External Catheter Weight 118.5 kg GENERAL: The patient is lying in bed and is not in acute distress. NEUROLOGICAL: Higher mental function: The patient is awake, alert, oriented to self, place and time. Patient is following commands. Has moderate amount of expressive aphasia. Cranial nerves: The pupils are round, equal and reactive to light. Visual santos are full to confrontation throughout. Extraocular movement is intact no nystagmus is noted. Facial sensation is normal to touch throughout. The facial strength is normal throughout. Hearing is mildly decreased bilaterally to hand rub. Tongue is midline and moved [id number] without any difficulty. No dysarthria is noted. Shoulder shrug is normal bilaterally. Motor: The strength is 5 over 5 throughout. Normal tone and bulk. Cerebellum: Normal finger to nose bilaterally. Sensation: Sensation is normal to touch throughout. Reflexes (right/left):2+ in uppers while lowers are 1+. Plantars are mute bilaterally. Results - Laboratory Findings CBC and BMP: 04/01/23 05:47 04/01/23 05:47 Abnormal Lab Findings: Abnormal Labs 03/31/23 03/31/23 04/01/23 23:37 23:37 05:47 Lymphocytes # 0.9 L Sodium 135 L BUN 24 H 19 H Glucose 104 H 114 H Assessment and Plan Assessment: This is a 77-year-old woman who presented to the emergency department because of expressive aphasia that started around 10:30ish p.m. on 03/31/2023 or shortly after that time. In the ED her NIH stroke scale was a 5. Patient received IV TPA and family feels she is somewhat better today compared to yesterday. On examination she continues to have expressive aphasia. 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 Hypertension Plan: We'll get a repeat 24 hour IV tPA. If negative for bleed then recommend starting aspirin 81 mg and Plavix 75 mg daily. Patient is on Lipitor 80 mg daily at bedtime daily I ordered MRI of the brain 2-D echo was ordered and is pending Lipid panels ordered and pending the I ordered TSH. Continue neuro checks per IV TPA protocol Cardiac monitoring Recommend for the systolic blood pressure to be less than 185 and diastolic less than 110 per IV TPA protocol. PT, OT and INCOME AUDITOR are consulted We'll defer the rest of the medical management to the primary team DVT prophylaxis patient is on SCDs. The plan was discussed with the patient, her and [id number] are at bedside. Thank you for the consultation. Time with Patient: Greater than 30
--- NOTE | 2023-04-01 17:18 | CA ---
Transthoracic Echo Report Name: Radhika Jaimes Age: 77 Gender: F : 1945 Exam Date: 04/01/2023 13:28 Exam Location: [facility] Ht (in): 65 Wt (lb): 268 Ordering Physician: Tanvi Max DO Attending/Referring Phys: [id number], Mansoor Rn Neonatal Icu Sameera Denise, DAVID Procedure CPT: Indications: Thrombus - acute stroke, received TPA Cardiac Hx: stroke Technical Quality: Good Contrast 1: Total Dose (mL): Contrast 2: Total Dose (mL): MEASUREMENTS (Male / Female) Normal Values 2D ECHO LV Diastolic Diameter PLAX 4.1 cm 4.2 - 5.9 / 3.9 - 5.3 cm LV Systolic Diameter PLAX 3.0 cm IVS Diastolic Thickness 1.2 cm 0.6 - 1.0 / 0.6 - 0.9 cm LVPW Diastolic Thickness 1.4 cm 0.6 - 1.0 / 0.6 - 0.9 cm LV Relative Wall Thickness 0.6 RV Internal Dim ED PLAX 2.9 cm LA Systolic Diameter LX 3.3 cm 3.0 - 4.0 / 2.7 - 3.8 cm LV Diastolic Volume MOD 4C 91.8 cm??? LV Systolic Volume MOD 4C 41.0 cm??? LV Ejection Fraction MOD 4C 55.3 % LV Cardiac Index MOD 4C 1463.7 cm???/min???m??? LV Diastolic Length 4C 7.5 cm LV Systolic Length 4C 5.9 cm LV Diastolic Volume MOD 2C 97.3 cm??? LV Systolic Volume MOD 2C 38.7 cm??? LV Ejection Fraction MOD 2C 60.2 % LV Cardiac Index MOD 2C 1688.4 cm???/min???m??? LV Diastolic Length 2C 7.5 cm LV Systolic Length 2C 6.2 cm LA Volume 54.8 cm??? 18 - 58 / 22 - 52 cm??? LA Volume Index 22.6 cm???/m??? 16 - 28 cm???/m??? M-MODE Aortic Root Diameter MM 3.2 cm MV E Point Septal Separation 0.3 cm AV Cusp Separation MM 2.2 cm DOPPLER AV Peak Velocity 172.0 cm/s AV Peak Gradient 11.8 mmHg MV Area PHT 3.8 cm??? Mitral E Point Velocity 77.2 cm/s Mitral A Point Velocity 104.7 cm/s Mitral E to A Ratio 0.7 MV Deceleration Time 200.5 ms MV E' Velocity 4.4 cm/s Mitral E to MV E' Ratio 17.5 TR Peak Velocity 279.9 cm/s TR Peak Gradient 31.3 mmHg Right Ventricular Systolic Press 36.3 mmHg FINDINGS Left Ventricle Left ventricular ejection fraction is estimated at 55-60 %. Left ventricular cavity size normal. Mildly increased septal wall thickness. Moderately increased posterior wall thickness. Right Ventricle Normal right ventricular size. Mild pulmonary hypertension. Right Atrium Normal right atrial size. Left Atrium Mildly increased left atrial volume. Mitral Valve Mitral valve thickened. Trace to mild mitral regurgitation. Aortic Valve Trileaflet aortic valve. No aortic valve stenosis or regurgitation. Tricuspid Valve Structurally normal tricuspid valve. Mild tricuspid regurgitation. Pulmonic Valve Structurally normal pulmonic valve. No pulmonic regurgitation. Pericardium No pericardial effusion. Aorta Normal size aortic root and proximal ascending aorta. CONCLUSIONS Normal LV function Mild pulmonary hypertension Previewed by: Dr. Randal Joiner MD (Electronically Signed) Final Date: 01 April 2023 17:17
[2023-04-02 04:27] LABS: Basophils % (A) 0 %; Eosinophils # (A) 0.1 k/uL (0-0.7); Eosinophils % (A) 1 %; HCT 40.4 % (34.0-46.0); HGB 13.2 gm/dL (11.4-16.0); Lymphocytes # (A) 0.9 k/uL (1.0-4.8); Lymphocytes % (A) 21 %; MCH 28.8 pg (25.0-35.0); MCHC 32.6 g/dL (31.0-37.0); MCV 88.5 fL (80.0-100.0); Mean Platelet Volume 7.4; Monocytes # (A) 0.3 k/uL (0-1.0); Monocytes % (A) 7 %; Neutrophils % (A) 70 %; Platelet Count 172 k/uL (150-450); RBC 4.57 m/uL (3.80-5.40); RDW 14.1 % (11.5-15.5); WBC 4.4 k/uL (3.8-10.6)
[2023-04-02 04:45] LABS: ALT 23 U/L (4-34); AST 29 U/L (14-36); African American GFR (CKD) >90 (>60 ml/min/1.73 sqM); Albumin 3.5 g/dL (3.5-5.0); Alkaline Phosphatase 99 U/L (38-126); Anion Gap 7 mmol/L; Blood Urea Nitrogen 11 mg/dL (7-17); Calcium 8.9 mg/dL (8.4-10.2); Carbon Dioxide 25 mmol/L (22-30); Chloride 104 mmol/L (98-107); Glucose 98 mg/dL (74-99); Non-African American GFR(CKD) 86 (>60 ml/min/1.73 sqM); Potassium 3.4 mmol/L (3.5-5.1); Sodium 136 mmol/L (137-145); Total Bilirubin 0.8 mg/dL (0.2-1.3); Total Protein 5.9 g/dL (6.3-8.2)
[2023-04-02] MEDS ORDERED: Potassium Replacement Protocol 1 EACH MISC MISCELLANE PRN (05:12)
[2023-04-02] MEDS: POTASSIUM CHLORIDE ER 20 MEQ TAB.ER PO SCH ×2 (05:20→06:43)
--- NOTE | 2023-04-02 08:34 | CT ---
EXAMINATION TYPE: CT brain wo con CT DLP: 1183.7 mGycm, Automated exposure control for dose reduction was used. DATE OF EXAM: 04/01/2023 11:46 PM COMPARISON: 03/31/2023. CLINICAL INDICATION:Female, 77 years old with history of Neuro deficit, acute, stroke suspected, Neur o deficit, stroke suspected, post TPA TECHNIQUE: Brain: Axial CT images of the brain were obtained with coronal and sagittal reformats created and rev iewed. Contrast used: None. Oral contrast used: None. FINDINGS: Brain: Extra-axial spaces: No abnormal extra-axial fluid collections. Ventricular system: Dilatation in proportion to cerebral atrophy. Cerebral parenchyma: The doyle-white matter differentiation the left parietal region series 201 image 38 is unchanged.Cerebral atrophy. No acute intraparenchymal hemorrhage or mass effect. The remainder of the doyle-white junctions are well differentiated. Scattered hypoattenuating areas are seen within the white matter. Cerebellum: Unremarkable. Mass effect: No evidence of midline shift. Intracranial vasculature: Atherosclerotic calcifications of the intracranial vessels. Soft tissues: Normal. Calvarium/osseous structures: No depressed skull fracture. Paranasal sinuses and mastoid air cells: Mild scattered paranasal sinus disease. Visualized orbits: Orbital contents are intact. IMPRESSION: 1. Stable right parietal acute/subacute CVA. No evidence for intracranial hemorrhage. 2. Nonspecific white matter changes, likely secondary to chronic small vessel ischemic disease.
[2023-04-02 08:58] LABS: Chol/HDL Ratio 4.37 Ratio; LDL Cholesterol,Calculated 147.5 mg/dL (0.0-131.0)
[2023-04-02] MEDS: CLOPIDOGREL 75 MG TAB PO SCH (09:40)
[2023-04-02] MEDS: ASPIRIN 81 MG PO SCH (09:40)
--- NOTE | 2023-04-02 12:29 | P.PN ---
Subjective Progress Note Date: 04/02/23 Principal diagnosis: Acute ischemic CVA, status post TPA I am seeing this patient in consultation today 04/01/2023 in the intensive care unit after the patient was admitted for suspected acute ischemic stroke post- TPA. Patient is an 77-year-old white female past medical history significant hypertension, right rotator cuff tear,and appendiceal cancer. Around 2240 last night, the patient's states that his came to the bedroom, and "was not feeling right". He says that she had trouble speaking and her right arm was flexed. He took her to the kitchen, and immediately called 911. Code stroke was activated in route. Last known well, per , is 2029. on arrival, NIH was scored at 10. Brain CT showed no hemorrhage or mass effect. Brain CTA showed no acute occlusion or dissection within the arteries of the neck. Patient was given TPA at 2336. Patient is currently lying in bed, on room air, in no acute distress. She continues to have significant expressive dysphasia. Right arm is flexed, but has good strength. Blood pressure is slightly hypertensive. Heart rhythm and bedside monitor appears normal sinus. Most recent CBC shows a WBC count of 4, hemoglobin 13.9, hematocrit 41.7, platelets 190. coagulation profile WDL. BMP has sodium of 135, potassium 3.9, chloride 103, serum bicarbonate 23, BUN 24, creatinine 0.78, glucose 104. LFTs elevated. Troponin less than 0.012. Patient will be monitored in the intensive care unit. Patient was reevaluated today on 04/02/23, remains in the ICU as per the post- TPA protocol, patient is doing well, she continues to have minimal expressive dysphasia. Patient was already seen by neurology on consultation, and mostly recommending MRI of the brain, 2-D echocardiogram, TSH, and neurology is well aware of the severe stenosis/occlusion of the distal left intracranial vertebral artery. Clinically the patient is doing great, and I believe the patient could be transferred out of the ICU to a regular medical floor. WBC count today is 4.4 hemoglobin is 13.2 electrolytes are normal renal profile is normal. Patient is on aspirin, atorvastatin, Plavix, and on subcu heparin. Objective - Vital Signs Vital signs: Vital Signs Temp 98.4 F 04/02/23 08:00 Pulse 99 11/22/23 09:00 Resp 18 04/02/23 09:00 BP 154/102 04/02/23 08:00 Pulse Ox 98 04/02/23 09:00 FiO2 Intake & Output 04/01/23 04/02/23 04/02/23 18:59 06:59 18:59 Intake Total 100 250 Output Total 2250 Balance -2150 250 Weight 112.9 kg Intake: IV 100 0.9 KVO 100 Oral 250 Output: Urine 2250 Other: Voiding Method External Catheter Bedside Commode Toilet # Voids 0 1 0 # Bowel Movements 1 1 - Exam Physical Exam: Revealed a 77-year-old female in no distress Head: Atraumatic, normocephalic. HEENT:[Neck is supple.] [No neck masses.] [No thyromegaly.] [No JVD.] Chest: [Clear throughout, no crackles, no rhonchi, no wheezes.] Cardiac Exam: [Normal S1 and S2, no S3 gallop, no murmur.] Abdomen: [Soft, nontender, no megaly, no rebound, no guarding, normal bowel sounds.] Extremities: [No clubbing, no edema, no cyanosis.] Neurological Exam: [No focal neurologic deficit.] Except the patient does have a minimal expressive dysphasia when it comes to certain names Psychiatric: Normal mood affect and normal mental status examination. Skin: No rash - Labs CBC & Chem 7: 04/02/23 03:10 04/02/23 10:48 Labs: Abnormal Lab Results - Last 24 Hours (Table) 04/02/23 04/02/23 Range/Units 03:10 03:10 Lymphocytes # 0.9 L (1.0-4.8) k/uL Sodium 136 L (137-145) mmol/L Potassium 3.4 L (3.5-5.1) mmol/L Total Protein 5.9 L (6.3-8.2) g/dL Triglycerides 161.00 H (0.00-149.00) mg/dL Cholesterol 233.00 H (0.00-200.00) mg/dL LDL Cholesterol, Calc 147.5 H (0.0-131.0) mg/dL Assessment and Plan Assessment: Impression: Acute ischemic stroke, status post TPA infusion. 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 Patient needs to be cleared for discharge by neurology. We will continue to follow Time with Patient: Less than 30
--- NOTE | 2023-04-02 12:39 | P.PN ---
Subjective Progress Note Date: 04/02/23 On follow-up with patient and patient states that she's doing better compared to initial presentation but continues to have some speech difficulty as well as feels her right hand is weak. Objective - Vital Signs Vital signs: Vital Signs Temp 98.4 F 04/02/23 08:00 Pulse 99 04/02/23 09:00 Resp 18 04/02/23 09:00 BP 154/102 04/02/23 08:00 Pulse Ox 98 04/02/23 09:00 FiO2 Intake & Output 04/01/23 04/02/23 04/02/23 18:59 06:59 18:59 Intake Total 100 250 Output Total 2250 Balance -2150 250 Weight 112.9 kg Intake: IV 100 0.9 KVO 100 Oral 250 Output: Urine 2250 Other: Voiding Method External Catheter Bedside Commode Toilet # Voids 0 1 0 # Bowel Movements 1 1 - Exam GENERAL: The patient is lying in bed and is not in acute distress. NEUROLOGICAL: Higher mental function: The patient is awake, alert, oriented to self, place and time. Patient is following simple commands. Has mild expressive aphasia. Cranial nerves: The pupils are round, equal and reactive to light. Visual fi elds are full to confrontation throughout. Extraocular movement is intact no nystagmus is noted. Facial sensation is normal to touch throughout. The facial strength is normal throughout. Hearing is mildly decreased bilaterally to hand rub. Tongue is midline and moved [id number] without any difficulty. No dysarthria is noted. Shoulder shrug is normal bilaterally. Motor: The strength is has mild weakness of right foream of 4+ and dexerity of right hand. Otherwise 5 over 5 throughout. Normal tone and bulk. Cerebellum: Normal finger to nose bilaterally. Sensation: Sensation is normal to touch throughout. Reflexes (right/left):2+ in uppers while lowers are 1+. Plantars are mute bilaterally. Some of the work-up consisted of: Lipid panel: Triglyceride of 161, cholesterol is 233, LDLs 147 HDL is [address] of the head is reported as moderate low attenuation foci in the cerebral white matter. Findings are nonspecific but commonly chronic small vessel ischem ic disease. I personally reviewed the CT and I agreed the patient does have attenuation in the white matter region in the subcortical frontal parietal occipital region that seems suspicious for chronic small vessel disease. There is no prior CT for comparison. There is no bleed. I reviewed the labs that was done since yesterday. CT angiography of the head and neck was reported as severe stenosis to occlusion of the distal left intracranial vertebral artery. No acute finding in the arteries of the neck. Patient received TPA. Repeat CT of the head post IV tpa: It is reported as stable right parietal acute subacute CVA. No evidence of intracranial hemorrhage. Nonspecific white matter changes, likely secondary due to chronic small vessel ischemic disease. I personally reviewed the CT and I do not feel there is acute subacute in the right parietal but I feel patient has hypodensity that seems subacute in the left frontal in my opinion. 2-D echo was reported as normal left ventricle function. Mild pulmonary hypertension. - Labs CBC & Chem 7: 04/02/23 03:10 04/02/23 10:48 Labs: Abnormal Lab Results - Last 24 Hours (Table) 04/02/23 04/02/23 Range/Units 03:10 03:10 Lymphocytes # 0.9 L (1.0-4.8) k/uL Sodium 136 L (137-145) mmol/L Potassium 3.4 L (3.5-5.1) mmol/L Total Protein 5.9 L (6.3-8.2) g/dL Triglycerides 161.00 H (0.00-149.00) mg/dL Cholesterol 233.00 H (0.00-200.00) mg/dL LDL Cholesterol, Calc 147.5 H (0.0-131.0) mg/dL Assessment and Plan Assessment: This is a 77-year-old woman who presented to the emergency department because of expressive aphasia that started around 10:30ish p.m. on 03/31/2023 or shortly after that time. In the ED her NIH stroke scale was a 5. Patient received IV TPA and family feels she is somewhat better. On examination she continues to have expressive aphasia with mild weakness of the distal right upper extremity with some loss dexterity of the right hand. 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 Hypertension Plan: Started the patient on aspirin 81 mg and Plavix 75 mg daily (was not on daily antiplatelets prior to this) Recommend holding off statin since patient states she has myalgia and joint pains with statins. Pending MRI of the brain Recommend a 30 day event monitor. I ordered a venous duplex of the lowers in the uppers especially since the patient had a recent travel to rule out any DVTs. Continue neuro checks Cardiac monitoring PT, OT and BREWERY TECHNICIAN are consulted We'll defer the rest of the medical management to the primary team DVT prophylaxis: started on subq heparin. The plan was discussed with the patient and her nurse. Dr. Wolf will resume neurology service tomorrow A.M. Time with Patient: Less than 30
--- NOTE | 2023-04-02 13:30 | P.PN ---
Subjective Progress Note Date: 04/02/23 patient is 77-year-old lady with past medical history significant for hypertension who presented to the ER for evaluation for possible stroke. Patient was accompanied by her was probably mostly history. According to they were watching football game last night at the time patient was in perfectly normal health. went for a few minutes out of the room and when he came back to check on her found her to be confused. She noticed that his right arm was totally paralyzed. Patient was having difficulty in speaking and was having word salad. There was no noticeable facial droop. No noticeable jerking movements of any extremity. immediately became concerned about possibility of a stroke and called 911 and patient was brought to the ER Initial lab work done in the ER showed WBC 4, hemoglobin 13.9, platelet count 190, sodium 135, potassium 3.9, BUN 24, creatinine 0.78, glucose 102, AST 34 ALT 28, troponin 0.012 EKG done in the ER Chest x-ray done in the ER CT brain done showed moderately low attenuation foci in the cerebral white matter, finding nonspecific but commonly chronic small vessel ischemic disease CTA done showed no acute findings in the arteries of the neck ER physician talked with database administration associate neurologist and patient was considered a TPA candidate. Patient received TPA was brought to the ICU. 04/02. Patient seen and examined. No evidence of any slurred speech. Right hand weakness is also improving. Discussed with patient regarding Lipitor as it was documented that patient is intolerant to it, discuss with her regarding starting Lipitor at low dose in the hospital. REVIEW OF SYSTEMS: CONSTITUTIONAL: No fever, no malaise,. CARDIOVASCULAR: No chest pain, no palpitations, no syncope. PULMONARY: No shortness of breath, no cough, GASTROINTESTINAL: No diarrhea, no nausea, no vomiting, no abdominal pain. NEUROLOGICAL: No headaches, no weakness, PHYSICAL EXAMINATION: GENERAL: The patient is alert and oriented x3, not in any acute distress. Well developed, well nourished. HEENT: Pupils are round and equally reacting to light. EOMI. No scleral icterus. No conjunctival pallor. Normocephalic, atraumatic. No pharyngeal erythema. No thyromegaly. CARDIOVASCULAR: S1 and S2 present. No murmurs, rubs, or gallops. PULMONARY: Chest is clear to auscultation, no wheezing or crackles. ABDOMEN: Soft, nontender, nondistended, normoactive bowel sounds. No palpable organomegaly. MUSCULOSKELETAL: No joint swelling or deformity. EXTREMITIES: No cyanosis, clubbing, or pedal edema. NEUROLOGICAL: Muscle strength is 4/5 in right upper extremity, 5 x 5 in all extremities SKIN: No rashes. Assessment and plan Acute stroke Hypertension Monitor vital signs Monitor CBC Monitor CMP Continue telemetry monitoring Continue neuro checks Continue Lipitor, will start at low dose Continue aspirin and Plavix Ordered 2-D echo Ordered ultrasound of upper and lower extremity Ordered MRI brain PT OT, speech evaluation In regards to hypertension, resume Cardizem and losartan Regards to hyperlipidemia , start low-dose Lipitor as patient stated that she was intolerant to statins in the past, if she is unable to tolerate it we will switch to Crestor or discharge Labs and medication were reviewed.. Continue same treatment. Continue with symptomatic treatment. Resume home medication. Monitor labs and vitals. DVT and GI prophylaxis. Further recommendations as per clinical course of the patient Dictation was produced using [employer] dictation software. please excuse any grammatical, word or spelling errors. Objective - Vital Signs Vital signs: Vital Signs Temp 98.4 F 04/02/23 08:00 Pulse 99 04/02/23 09:00 Resp 18 04/02/23 09:00 BP 154/102 04/02/23 08:00 Pulse Ox 98 04/02/23 09:00 FiO2 Intake & Output 04/01/23 04/02/23 04/02/23 18:59 06:59 18:59 Intake Total 100 250 Output Total 2250 Balance -2150 250 Weight 112.9 kg Intake: IV 100 0.9 KVO 100 Oral 250 Output: Urine 2250 Other: Voiding Method External Catheter Bedside Commode Toilet # Voids 0 1 0 # Bowel Movements 1 1 - Labs CBC & Chem 7: 04/02/23 03:10 04/02/23 10:48 Labs: Abnormal Lab Results - Last 24 Hours (Table) 04/02/23 04/02/23 Range/Units 03:10 03:10 Lymphocytes # 0.9 L (1.0-4.8) k/uL Sodium 136 L (137-145) mmol/L Potassium 3.4 L (3.5-5.1) mmol/L Total Protein 5.9 L (6.3-8.2) g/dL Triglycerides 161.00 H (0.00-149.00) mg/dL Cholesterol 233.00 H (0.00-200.00) mg/dL LDL Cholesterol, Calc 147.5 H (0.0-131.0) mg/dL
--- NOTE | 2023-04-02 13:43 | US ---
EXAMINATION TYPE: US venous doppler duplex UE DATE OF EXAM: 04/02/2023 COMPARISON: NONE CLINICAL INDICATION: Female, 77 years old with history of rule out DVT. CVA with recent travel; Alyx ent states weakness in the right arm - denies any other signs and symptoms SIDE PERFORMED: Bilateral Right Arm: Negative for DVT Left Arm: Negative for DVT IMPRESSION: Grayscale, color doppler, spectral doppler imaging performed of the deep veins of the upper extremiti es. There is normal flow, compressibility and vascular waveforms.
[2023-04-02] MEDS: LOSARTAN 50 MG TAB PO SCH (14:28)
--- NOTE | 2023-04-02 14:48 | US ---
EXAMINATION TYPE: US venous doppler duplex LE BI DATE OF EXAM: 04/02/2023 12:50 PM COMPARISON: NONE CLINICAL INDICATION: Female, 77 years old with history of DVT; No hx of DVT. Pain and swelling x 2 da ys. Hx bilateral knee replacement. SIDE PERFORMED: Bilateral TECHNIQUE: The lower extremity deep venous system is examined utilizing real time linear array sonog shasta with graded compression, doppler sonography and color-flow sonography. VESSELS IMAGED: Common Femoral Vein Deep Femoral Vein Greater Saphenous Vein * Femoral Vein Popliteal Vein Small Saphenous Vein * Proximal Calf Veins (* superficial vessels) Right Leg: No evidence of DVT. Left Leg: No evidence of DVT. IMPRESSION: No evidence for DVT within the bilateral lower extremities imaged from the groin to the upper calves.
--- NOTE | 2023-04-02 14:59 | MR ---
EXAMINATION TYPE: MR brain wo con DATE OF EXAM: 04/02/2023 2:14 PM CLINICAL INDICATION:Female, 77 years old with history of stroke. Aphasia; PHH, Aphasia, stroke x 2 d ays COMPARISON: CT brain 04/01/2023.. TECHNIQUE: Multi planar, multi sequence imaging was performed through the brain including: T1, T2, In version recovery, Diffusion weighted imaging, and gradient echo imaging. No gadolinium was given. FINDINGS: Gyriform restricted diffusion present within the left parietal lobe extending to the tempor al lobe this has high DWI signal and low ADC signal particularly the anterior aspect while other area s demonstrate T2 shine through.The doyle-white junctions, ventricular system, and cisterns appear unre markable. Scattered foci of high T2 signal intensity are seen within the periventricular white matte r. Midline structures show no abnormality. Diffusion-weighted imaging shows no evidence of restricted diffusion. Blooming artifact an area of prior injury compatible with hemosiderin deposition. The bone marrow signal is within normal limits. Paranasal sinuses and mastoid air cells: No significant paranasal sinus disease. Visualized orbits: Orbital contents are intact. IMPRESSION: 1. Gyriform restricted diffusion along the left parietal lobe anteriorly compatible with acute/subacu te CVA. There is evidence of more subacute to chronic injury posteriorly within the left parietal lob e. 2. Nonspecific white matter changes, likely secondary to small vessel ischemic disease.
[2023-04-02] MEDS ORDERED: ATORVASTATIN 20 MG TAB PO SCH (21:00)
[2023-04-02] MEDS: HEPARIN SODIUM,PORCINE 5,000 UNIT/ML 1 ML VIAL SQ SCH (21:39)
[2023-04-03 04:26] LABS: HGB 12.8 gm/dL (11.4-16.0); MCH 28.6 pg (25.0-35.0); MCHC 32.1 g/dL (31.0-37.0); MCV 89.2 fL (80.0-100.0); Mean Platelet Volume 7.4; Platelet Count 187 k/uL (150-450); RBC 4.49 m/uL (3.80-5.40); RDW 14.1 % (11.5-15.5); WBC 4.9 k/uL (3.8-10.6)
[2023-04-03 04:44] LABS: ALT 25 U/L (4-34); AST 33 U/L (14-36); African American GFR (CKD) >90 (>60 ml/min/1.73 sqM); Albumin 3.6 g/dL (3.5-5.0); Alkaline Phosphatase 90 U/L (38-126); Anion Gap 9 mmol/L; Blood Urea Nitrogen 13 mg/dL (7-17); Calcium 9.1 mg/dL (8.4-10.2); Carbon Dioxide 25 mmol/L (22-30); Chloride 104 mmol/L (98-107); Glucose 100 mg/dL (74-99); Non-African American GFR(CKD) >90 (>60 ml/min/1.73 sqM); Potassium 3.6 mmol/L (3.5-5.1); Sodium 138 mmol/L (137-145); Total Bilirubin 0.7 mg/dL (0.2-1.3); Total Protein 6.2 g/dL (6.3-8.2)
[2023-04-03] MEDS ORDERED: POTASSIUM CHLORIDE ER 20 MEQ TAB.ER PO SCH (06:00)
[2023-04-03] MEDS: CLOPIDOGREL 75 MG TAB PO SCH (08:53)
[2023-04-03] MEDS: ASPIRIN 81 MG PO SCH (08:53)
[2023-04-03] MEDS: HEPARIN SODIUM,PORCINE 5,000 UNIT/ML 1 ML VIAL SQ SCH (08:53)
[2023-04-03] MEDS: LOSARTAN 50 MG TAB PO SCH (08:53)
[2023-04-03] MEDS ORDERED: DILTIAZEM CD 120 MG CAP.ER.24H PO SCH (09:00)
[2023-04-03 09:30] VITALS: BP 158/88; PULSE 81; RESP 18; TEMP 98
--- NOTE | 2023-04-03 10:51 | P.PN ---
Subjective Progress Note Date: 04/03/23 Principal diagnosis: Acute ischemic CVA, status post TPA I am seeing this patient in consultation today 04/01/2023 in the intensive care unit after the patient was admitted for suspected acute ischemic stroke post- TPA. Patient is an 77-year-old white female past medical history significant hypertension, right rotator cuff tear,and appendiceal cancer. Around 2240 last night, the patient's states that his came to the bedroom, and "was not feeling right". He says that she had trouble speaking and her right arm was flexed. He took her to the kitchen, and immediately called 911. Code stroke was activated in route. Last known well, per , is 2029. on arrival, NIH was scored at 10. Brain CT showed no hemorrhage or mass effect. Brain CTA showed no acute occlusion or dissection within the arteries of the neck. Patient was given TPA at 2336. Patient is currently lying in bed, on room air, in no acute distress. She continues to have significant expressive dysphasia. Right arm is flexed, but has good strength. Blood pressure is slightly hypertensive. Heart rhythm and bedside monitor appears normal sinus. Most recent CBC shows a WBC count of 4, hemoglobin 13.9, hematocrit 41.7, platelets 190. coagulation profile WDL. BMP has sodium of 135, potassium 3.9, chloride 103, serum bicarbonate 23, BUN 24, creatinine 0.78, glucose 104. LFTs elevated. Troponin less than 0.012. Patient will be monitored in the intensive care unit. Patient was reevaluated today on 04/02/23, remains in the ICU as per the post- TPA protocol, patient is doing well, she continues to have minimal expressive dysphasia. Patient was already seen by neurology on consultation, and mostly recommending MRI of the brain, 2-D echocardiogram, TSH, and neurology is well aware of the severe stenosis/occlusion of the distal left intracranial vertebral artery. Clinically the patient is doing great, and I believe the patient could be transferred out of the ICU to a regular medical floor. WBC count today is 4.4 hemoglobin is 13.2 electrolytes are normal renal profile is normal. Patient is on aspirin, atorvastatin, Plavix, and on subcu heparin. Reevaluated today on 04/03/23, patient remains in the ICU, doing extremely well. Continues to have a tiny bit of expressive dysphasia, otherwise there is no evidence of any neurological deficit. Patient initially presented with acute ischemic stroke and she received IV TPA she was also found to have severe stenosis occlusion of the distal left intracranial vertebral artery and she has underlying hypertension. She is now on aspirin and Plavix, statins are on hold because of her myalgia and joint pains with statin MRI was reviewed. I will clear the patient to be discharged home if cleared by neurology Objective - Vital Signs Vital signs: Vital Signs Temp 98.0 F 04/03/23 08:00 Pulse 81 04/03/23 08:00 Resp 18 04/03/23 08:00 BP 158/88 04/03/23 08:00 Pulse Ox 99 04/03/23 08:00 FiO2 Intake & Output 04/02/23 04/03/23 04/03/23 18:59 06:59 18:59 Intake Total 250 200 200 Balance 250 200 200 Weight 112.6 kg Intake: Oral 250 200 200 Other: Voiding Method Toilet Toilet Toilet # Voids 3 1 1 # Bowel Movements 1 - Exam Physical Exam: Revealed a 77-year-old female in no distress Head: Atraumatic, normocephalic. HEENT:[Neck is supple.] [No neck masses.] [No thyromegaly.] [No JVD.] Chest: [Clear throughout, no crackles, no rhonchi, no wheezes.] Cardiac Exam: [Normal S1 and S2, no S3 gallop, no murmur.] Abdomen: [Soft, nontender, no megaly, no rebound, no guarding, normal bowel sounds.] Extremities: [No clubbing, no edema, no cyanosis.] Neurological Exam: [No focal neurologic deficit.] Minimal expressive dysphasia persist Psychiatric: Normal mood affect and normal mental status examination. Skin: No rash - Labs CBC & Chem 7: 04/03/23 03:29 04/03/23 07:21 Labs: Abnormal Lab Results - Last 24 Hours (Table) 04/03/23 Range/Units 03:29 Glucose 100 H (74-99) mg/dL Total Protein 6.2 L (6.3-8.2) g/dL Assessment and Plan Assessment: Impression: Acute ischemic stroke, status post TPA infusion. 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
--- NOTE | 2023-04-03 12:53 | P.DS ---
Providers Date of admission: 04/01/23 00:07 Expected date of discharge: 04/03/23 Attending physician: Ang Doss Consults: 04/01/23 00:08 Consult Physician Urgent Consulting Provider: Sp Christian Consult Reason/Comments: acute stroke - received TPA Do you want consulting provider notified?: Yes, Notify in am 04/01/23 00:10 Consult Physician Urgent Consulting Provider: Guillermo West Consult Reason/Comments: Acute Stroke - received TPA Do you want consulting provider notified?: Already Contacted Primary care physician: Darryl Smallwood Hospital Course: Discharge diagnoses; Acute CVA Hypertension Hyperlipidemia Hospital course; patient is 77-year-old lady with past medical history significant for hypertension who presented to the ER for evaluation for possible stroke. Patient was accompanied by her was probably mostly history. According to they were watching football game last night at the time patient was in perfectly normal health. went for a few minutes out of the room and when he came back to check on her found her to be confused. She noticed that his right arm was totally paralyzed. Patient was having difficulty in speaking and was having word salad. There was no noticeable facial droop. No noticeable jerking movements of any extremity. immediately became concerned about possibility of a stroke and called 911 and patient was brought to the ER Initial lab work done in the ER showed WBC 4, hemoglobin 13.9, platelet count 190, sodium 135, potassium 3.9, BUN 24, creatinine 0.78, glucose 102, AST 34 ALT 28, troponin 0.012 EKG done in the ER Chest x-ray done in the ER CT brain done showed moderately low attenuation foci in the cerebral white matter, finding nonspecific but commonly chronic small vessel ischemic disease CTA done showed no acute findings in the arteries of the neck ER physician talked with pellet preparation operator neurologist and patient was considered a TPA candidate. Patient received TPA was brought to the ICU. 04/02. Patient seen and examined. No evidence of any slurred speech. Right hand weakness is also improving. Discussed with patient regarding Lipitor as it was documented that patient is intolerant to it, discuss with her regarding starting Lipitor at low dose in the hospital. 04/03. Patient seen and examined. MRI brain done showed restricted diffusion along the left parietal lobe anteriorly compatible with acute/subacute CVA. There is evidence of more subacute or chronic injury posteriorly within the left parietal lobe. Ultrasound of the upper and lower extremities negative for DVT. 2-D echo done showed normal LV function, mild pulmonary hypertension Patient tolerated Lipitor overnight, no evidence of any muscle weakness at this time. Discussed with her regarding taking Crestor as outpatient, patient agreeable if patient develops any muscle aches or weakness she will contact her PCP regarding decreasing the dose of Crestor or switching to alternative agents. Neurology recommended discharging patient on aspirin and Plavix for 21 days followed by aspirin alone. PHYSICAL EXAMINATION: GENERAL: The patient is alert and oriented x3, not in any acute distress. Well developed, well nourished. HEENT: Pupils are round and equally reacting to light. EOMI. No scleral icterus. No conjunctival pallor. Normocephalic, atraumatic. No pharyngeal erythema. No thyromegaly. CARDIOVASCULAR: S1 and S2 present. No murmurs, rubs, or gallops. PULMONARY: Chest is clear to auscultation, no wheezing or crackles. ABDOMEN: Soft, nontender, nondistended, normoactive bowel sounds. No palpable organomegaly. MUSCULOSKELETAL: No joint swelling or deformity. EXTREMITIES: No cyanosis, clubbing, or pedal edema. NEUROLOGICAL: Muscle strength is 4/5 in right upper extremity, 5 x 5 in all extremities SKIN: No rashes. Dictation was produced using [facility] dictation software. please excuse any grammatical, word or spelling errors. Patient Condition at Discharge: Fair Plan - Discharge Summary Discharge Rx Participant: Yes New Discharge Prescriptions: New Rosuvastatin [Crestor] 40 mg PO HS 30 Days #60 tablet Aspirin 81 mg PO DAILY 30 Days #30 tab Clopidogrel [Plavix] 75 mg PO DAILY 21 Days #21 tab Continue Losartan Potassium 100 mg PO DAILY dilTIAZem HCL [Cartia Xt] 120 mg PO DAILY Latanoprost [Latanoprost 0.005%] 1 drop BOTH EYES HS Furosemide [Lasix] 20 mg PO DIRECTED Discharge Medication List Losartan Potassium 100 mg PO DAILY 07/27/20 [History] dilTIAZem HCL [Cartia Xt] 120 mg PO DAILY 07/27/20 [History] Furosemide [Lasix] 20 mg PO DIRECTED 04/01/23 [History] Latanoprost [Latanoprost 0.005%] 1 drop BOTH EYES HS 04/01/23 [History] Aspirin 81 mg PO DAILY 30 Days #30 tab 04/02/23 [Rx] Clopidogrel [Plavix] 75 mg PO DAILY 21 Days #21 tab 04/02/23 [Rx] Rosuvastatin [Crestor] 40 mg PO HS 30 Days #60 tablet 04/02/23 [Rx] Follow up Appointment(s)/Referral(s): Darryl Smallwood MD [Primary Care Provider] - 1-2 days Sp Cooper MD [STAFF PHYSICIAN] - 1 Week Discharge Disposition: HOME SELF-CARE
== END 2023-04-03 13:35 | disposition home or self-care (01) | DRG 62 ==
LOC: EC 23:28 → 2SICU 04-01 00:07
PROVIDERS: ADMIT Hospitalist; ATTEND Hospitalist
DX: I63.212 Cerebral infarction due to unspecified occlusion or stenosis of left vertebral artery (principal); Z68.41 Body mass index [BMI] 40.0-44.9, adult; E66.01 Morbid (severe) obesity due to excess calories; E78.5 Hyperlipidemia, unspecified; I10 Essential (primary) hypertension; I27.20 Pulmonary hypertension, unspecified; R47.01 Aphasia; R29.705 NIHSS score 5; R47.02 Dysphasia; Z79.02 Long term (current) use of antithrombotics/antiplatelets; Z79.82 Long term (current) use of aspirin; Z79.899 Other long term (current) drug therapy; Z80.8 Family history of malignant neoplasm of other organs or systems; Z85.038 Personal history of other malignant neoplasm of large intestine; Z88.5 Allergy status to narcotic agent; Z88.8 Allergy status to other drugs, medicaments and biological substances
CPT/HCPCS: 36415; 37195; 70450; 70496; 70498; 70551; 71045; 80048; 80053; 80061; 82550; 83036; 84132; 84443; 84484; 85025; 85027; 85610; 85730; 93005; 93306; 93970; 99291

== ENCOUNTER → 2023-05-08 | Outpatient (CLI) | payer MEDICARE ==
--- NOTE | 2023-06-09 11:16 | P.EN ---
30 DAY EVENT MONITOR REPORT: INDICATION: CVA, I63.9. START DATE: 05/08/2023 END DATE: 06/04/2023 Patient wore the monitor for 23 days which is 82% of total time. FINDINGS: Overall [good] quality study. Patient's baseline rhythm was [normal sinus rhythm]. Baseline heart rate was 69 beats per minute. Maximum Heart Rate: 116 BPM Minimum Heart Rate: 63 BPM There were no pauses which were greater than 3 seconds There were occasional supraventricular ectopy. There were no sustained ventricular ectopy. There were occasional premature ventricular contractions. There was evidence of atrial fibrillation which was noticed on 06/01/2023 around 4:30 PM to 5:30 PM. Hai Mcadams MD, RPVI Cardiovascular Disease Please CC this report to Dr. Darryl Smallwood MD
== END | disposition home or self-care (01) ==
LOC: RADECHMAIN 07:37
PROVIDERS: ATTEND Family Medicine
DX: I49.3 Ventricular premature depolarization (principal); I48.91 Unspecified atrial fibrillation; I63.9 Cerebral infarction, unspecified
CPT/HCPCS: 93270

== ENCOUNTER → 2023-07-21 | Outpatient (CLI) | payer MEDICARE ==
[2023-07-21 11:13] LABS: African American GFR (CKD) >90 (>60 ml/min/1.73 sqM); Blood Urea Nitrogen 11 mg/dL (7-17); Non-African American GFR(CKD) 87 (>60 ml/min/1.73 sqM)
--- NOTE | 2023-07-21 12:25 | CT ---
Exam: CTA chest with contrast. Date: 07/21/2023. Comparison: None History: Aortic aneurysm. Technique: CT examination of the chest was performed without and with contrast. Coronal and sagittal reformats were performed. CT dose lowering techniques were used, to include: automated exposure contr ol, adjustment for patient size, and/or use of iterative reconstruction. Maximum intensity projection reformats were also performed. 100 mL of Isovue-370 was given intravenously. FINDINGS: Mediastinum and Rosalina: There is no axillary, mediastinal or hilar lymphadenopathy. Pleural and Pericardial spaces: There are no pleural or pericardial effusions. Upper Abdomen: The visualized upper abdomen is unremarkable. Cardiovascular: Dilation of ascending thoracic aorta to 4.5 cm is not significantly changed. Some mot ion slightly limits the examination. There is some mild vascular constipation otherwise seen within t he thoracic aorta. Pulmonary arteries are normal in size. No pulmonary arterial filling defects are s een. Lung Parenchyma and Airways: The lungs are clear. Bones: Significant degenerative changes are seen in the glenohumeral joints bilaterally. There are no acute osseous abnormalities. IMPRESSION: 1. Dilation of ascending thoracic ureter 4.5 cm is not significantly changed. 2. No acute findings otherwise seen.
== END | disposition home or self-care (01) ==
LOC: RADCTMAIN 10:29
PROVIDERS: ATTEND Internal Medicine Interventional Cardiology
DX: I71.21 Aneurysm of the ascending aorta, without rupture (principal)
CPT/HCPCS: 82565; 84520; 71275; 36415; Q9967

== ENCOUNTER → 2023-07-29 | Outpatient (CLI) | payer MEDICARE ==
--- NOTE | 2023-07-29 15:01 | US ---
EXAMINATION TYPE: US kidneys/renal and bladder DATE OF EXAM: 07/29/2023 COMPARISON: NONE CLINICAL INDICATION: Female, 77 years old with history of R35.0 FREQUENCY OF MICTURITION; Microscopic hematuria. EXAM MEASUREMENTS: Right Kidney: 10.0 x 5.4 x 4.3 cm Left Kidney: 11.3 x 4.7 x 4.6 cm Right Kidney: Superior lateral anechoic lesion= 1.1 x 1.3 x 1.0 cm. Medial anechoic lesion at hilum = 2.1 x 1.0 cm Left Kidney: Medial anechoic lesion at hilum = 1.7 x 0.8 cm. Bladder: Distended, anechoic Bilateral Jets seen There is no evidence for hydronephrosis at this point in time. No nephrolithiasis is seen. No kamaljit s are identified. The urinary bladder is anechoic. Bilateral ureteral jets are seen. IMPRESSION: 1. No evidence for obstructive uropathy. 2. Simple appearing renal cysts.
== END | disposition home or self-care (01) ==
LOC: RADUSWWP 13:07
PROVIDERS: ATTEND Family Medicine
DX: N28.1 Cyst of kidney, acquired (principal); R35.0 Frequency of micturition; R31.29 Other microscopic hematuria
CPT/HCPCS: 76770

== ENCOUNTER → 2023-08-21 | Outpatient (CLI) | payer MEDICARE ==
--- NOTE | 2023-08-21 12:18 | US ---
EXAMINATION TYPE: US abdomen limited DATE OF EXAM: 08/21/2023 COMPARISON: NONE CLINICAL INDICATION: Female, 77 years old with history of R10.30 LOWER ABDOMINAL PAIN, UNSPECIFIED; p t has midline infraumbilical pain/ burning x 2 months TECHNIQUE: several images taken at patients area of concern FINDINGS: no discrete abnormality noted at patients area of pain IMPRESSION: Unremarkable study. Correlate clinically.
--- NOTE | 2023-08-21 12:30 | US ---
EXAMINATION TYPE: US transvaginal DATE OF EXAM: 08/21/2023 COMPARISON: NONE CLINICAL INDICATION: Female, 77 years old with history of R10.30 LOWER ABDOMINAL PAIN, UNSPECIFIED; m idline pelvic pain x 2 months TECHNIQUE: Transvaginal (TV). Transvaginal sonographic images were medically necessary to better as sess the following anatomy: Date of LMP: post-dhara EXAM MEASUREMENTS: Uterus: 4.8x2.3x4.1 cm Endometrial Stripe: 0.5 cm Right Ovary: 0.7x0.6x0.5 cm Left Ovary: 1.0x0.5x0.5 cm 1. Uterus: Retroverted wnl 2. Endometrium: cystic spaces within 3. Right Ovary: probable rt ovary appears wnl within the hypoechoic complex region of the posterior cul-de-sac 4. Left Ovary: probable lt ovary appears wnl within the hypoechoic complex region of the posterior c ul-de-sac 5. Bilateral Adnexa: Obscured by overlying bowel gas 6. Posterior cul-de-sac: there is a 2.0x6.8x1.4cm complex hypoechoic region that is compressible ?fl uid collection? vs other IMPRESSION: Complex lesions bilateral ovaries. Six-week follow-up is recommended.
== END | disposition home or self-care (01) ==
LOC: RADUSWWP 08:32
PROVIDERS: ATTEND Family Medicine
DX: R10.30 Lower abdominal pain, unspecified (principal)
CPT/HCPCS: 76705; 76830

== ENCOUNTER → 2023-09-19 | Outpatient (CLI) | payer MEDICARE ==
[2023-09-19 16:52] LABS: ALT 17 U/L (8-44); AST 24 U/L (13-35); Albumin 4.6 g/dL (3.8-4.9); Albumin/Globulin Ratio 1.92 Ratio (1.60-3.17); Alkaline Phosphatase 88 U/L (41-126); BUN/Creat Ratio 19.38 Ratio (12.00-20.00); Blood Urea Nitrogen 15.5 mg/dL (9.0-27.0); Calcium 9.9 mg/dL (8.7-10.3); Carbon Dioxide 24.8 mmol/L (21.6-31.8); Chloride 103 mmol/L (96-109); Chol/HDL Ratio 2.62 Ratio; Globulin 2.4 g/dL (1.6-3.3); Glucose 104 mg/dL (70-110); LDL Cholesterol,Calculated 93.8 mg/dL (0.0-131.0); Potassium 4.9 mmol/L (3.5-5.5); Sodium 140 mmol/L (135-145); Total Bilirubin 0.5 mg/dL (0.3-1.2)
== END | disposition home or self-care (01) ==
LOC: LABWHC1 08:14
PROVIDERS: ATTEND Family Medicine
DX: E78.2 Mixed hyperlipidemia (principal)
CPT/HCPCS: 36415; 80053; 80061

== ENCOUNTER → 2023-09-24 | Outpatient (CLI) | payer MEDICARE ==
--- NOTE | 2023-09-24 17:21 | US ---
EXAMINATION TYPE: US transvaginal DATE OF EXAM: 09/24/2023 COMPARISON: 08/21/23 CLINICAL INDICATION: Female, 77 years old with history of N83.209 UNSPECIFIED OVARIAN CYST, UNSPECIFI ED SIDE; TECHNIQUE: Transvaginal (TV). Date of LMP: unknown EXAM MEASUREMENTS: Uterus: 6.1 x 2.9 x 4.3 cm Endometrial Stripe: 0.48 cm 1. Uterus: Retroverted wnl 2. Endometrium: Cystic structures noted . At the top end of the normal for patient's age. 3. Right Ovary: Obscured by overlying bowel gas 4. Left Ovary: Obscured by overlying bowel gas 5. Bilateral Adnexa: Peristalsing bowel noted 6. Posterior cul-de-sac: Large, complicated fluid collection noted CDS measuring 7.4 x 1.8 x 2.7 cm. No internal color flow noted. Prior 08/21/23 measured 6.8 x 2.1 x 1.5cm IMPRESSION: 1. Overall similar heterogenous complex fluid collection within the pelvic cul-de-sac possibly repre senting blood products versus other etiologies such as a rectocele. Clinical correlation is recommend ed with consideration for MRI pelvis. 2. Both ovaries are obscured by overlying bowel gas. 3. Cystic spaces identified within the endometrium as most common seen with endometrial hyperplasia.
== END | disposition home or self-care (01) ==
LOC: RADUSWWP 10:01
PROVIDERS: ATTEND Family Medicine
DX: N83.209 Unspecified ovarian cyst, unspecified side (principal)
CPT/HCPCS: 76830

== ENCOUNTER → 2023-10-14 | Outpatient (CLI) | payer MEDICARE ==
--- NOTE | 2023-10-15 17:54 | MR ---
EXAMINATION TYPE: MR pelvis wo/w con DATE OF EXAM: 10/14/2023 5:54 PM CLINICAL INDICATION:Female, 77 years old with history of N85.8 OTHER SPECIFIED NONINFLAMMATORY DISORD ERS OF; PHH, Abnormal U/S, Pressure feeling in lower abdomen, Hx of Appendix cancer, Hx of hernia rep air COMPARISON: 09/24/2023 TECHNIQUE: Triplane multisequence imaging was performed of the pelvis. IV Contrast: 11 cc Gadavist FINDINGS: Reproductive: Vagina: Unremarkable. Uterus: The uterus is retroverted in position. Uterus measures 5.8 x 3.0 x 5.8 cm. The endometrium an d junctional zone are within normal limits. Multiple nabothian cysts are seen in the lower uterine s egment. Ovaries: Follicular changes are noted to the ovaries. Bladder: Unremarkable. Bowel: Unremarkable as visualized. Peritoneum: High T2 low T1 signal fluid in the cul-de-sac which does demonstrate areas of nodular enh ancement on postcontrast imaging. There is also a right lower quadrant complex cystic mass partially visualized on coronal imaging measuring 85 x 49 mm and not completely in the [id number] on all seq uences coronal imaging series 201 image 9. Lymph nodes: No evidence of adenopathy. Vasculature: Unremarkable. Musculoskeletal: Bone marrow signal is within normal signal intensity. Abdominal wall/soft tissues: Unremarkable. IMPRESSION: Complex fluid collection with enhancing mural nodules free in the cul-de-sac. There is also a right l ower quadrant complex cystic mass partially visualized on coronal imaging measuring 85 x 49 mm and no t completely in the [id number] on all sequences. Findings concerning for malignancy with likely me tastatic disease. Oncologic workup recommended including full evaluation of the abdomen and pelvis wi th MRI with IV contrast.
== END | disposition home or self-care (01) ==
LOC: RADMRIMAIN 16:19
PROVIDERS: ATTEND Family Medicine
DX: N85.8 Other specified noninflammatory disorders of uterus (principal)
CPT/HCPCS: 72197; A9585

== ENCOUNTER → 2023-11-07 | Outpatient (CLI) | payer MEDICARE ==
--- NOTE | 2023-11-07 12:15 | MR ---
EXAMINATION TYPE: MR abdomen wo/w con DATE OF EXAM: 11/07/2023 9:49 AM CLINICAL INDICATION:Female, 77 years old with history of R19.00 INTRA-ABD AND PELVIC SWELLING, MASS A ND LUM, Hx of Abdomen Swelling COMPARISON: TECHNIQUE: Multiplanar multi-sequence imaging was performed without contrast. Post contrast imaging was performed. Post IV contrast subtraction images were also submitted for review. IV Contrast: 11 cc Gadavist FINDINGS: LOWER CHEST: No gross irregularity. ABDOMEN Liver: No evidence for hepatic steatosis or cirrhosis. Gallbladder and Bile ducts: No evidence for ductal dilation, or biliary stricture or evidence of chol edocholithiasis. The gallbladder is within normal limits. Pancreas: No ductal dilation. No evidence for solid mass. Spleen: Normal for size. Adrenal glands: Unremarkable. Kidneys: No evidence for obstructive uropathy. No suspicious renal masses. Stomach and Bowel: No evidence for bowel wall thickening or evidence for obstruction. Retroperitoneum/Peritoneum: Complex cystic lesion adjacent to the cecum measuring at least 8.6 x 5.4 cm which is predominately high T2 with multiple small cysts present. There is enhancing stepped on po stcontrast imaging. Additional areas of heterogeneous signal are seen along the liver capsule series 601 image 57 measuring 18 x 10 mm series 601 image 57 Vasculature: No aortic aneurysm. Musculoskeletal: The osseous structures appear intact. Lymph Nodes: No gross evidence for lymphadenopathy. Abdominal wall: Unremarkable. 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 There are few areas of concern along the liver capsule suspicious fo r metastatic disease including MR pelvis of nodular enhancement in the cul-de-sac.
== END | disposition home or self-care (01) ==
LOC: RADMRIMAIN 08:09
PROVIDERS: ATTEND Family Medicine
DX: R19.00 Intra-abdominal and pelvic swelling, mass and lump, unspecified site (principal)
CPT/HCPCS: 74183; A9585